=== PATIENT | male | born 1940 | race Caucasian/White ===

== ENCOUNTER 2018-12-26 09:50 | Observation (INO) ==
[2018-12-26] MEDS ORDERED: IOPAMIDOL 100 ML BOTTLE IV ONE (09:51)
--- NOTE | 2018-12-26 10:18 | Emergency Department Note ---
Abdominal Pain HPI - General Chief Complaint: Abdominal Pain Stated Complaint: abdominal pain Time Seen by Provider: 12/26/18 10:01 Source: patient Mode of arrival: ambulatory Limitations: no limitations - History of Present Illness HPI Narrative: 78-year-old male patient referred to emergency department via his GI specialist for suspected bowel obstruction. Patient has a long-standing history of Crohn's disease that is resulted in bowel obstruction this past September. Today, he woke up with exquisite abdominal pain and nausea/vomiting. He contacted his GI specialist (Mrs. Osuna) who referred him to the emergency department for evaluation. Upon arrival he is feeling "okay". He denies systemic fever, sweats, chills. He denies sinus congestion, runny nose, cough. He denies any shortness of breath. He denies any retrosternal chest pain or palpitations. He denies overt abdominal pain now. He denies nausea, vomiting, or diarrhea. He admits to having a normal bowel movement earlier today. He denies hematochezia. He denies hematuria or dysuria. He denies focal weakness. Review his active problems shows the following: CHF, elevated PSA, UTI, Crohn's disease, stroke (2013), arthritis, prediabetes, obstructive sleep apnea, obesity , hypertension, hyperlipidemia, gout, fatigue, GERD, bilateral hip pain, and back pain. - Related Data Home Medications Medication Instructions Recorded Confirmed aspirin 81 mg tablet 81 mg PO QDAY 12/21/14 10/23/18 krill oil 500 mg capsule 500 mg PO QDAY cap 12/21/14 10/23/18 multivitamin 1 tab PO QDAY 12/21/14 10/23/18 budesonide 3 mg 6 mg PO QAM 07/29/18 10/23/18 capsule,delayed,extended release Metoprolol Succinate [Toprol Xl] 25 mg PO DAILY 10/11/18 10/23/18 prednisone 20 mg tablet PO #56 tab 10/23/18 10/23/18 Previous Rx's Medication Instructions Recorded Replacement Bi-Pap Machine and #1 each 12/17/16 Supplies tamsulosin 0.4 mg capsule 0.4 mg PO QDAY #90 cap 12/16/17 omeprazole 40 mg capsule,delayed 40 mg PO QDAY #90 cap 03/03/18 release losartan 100 1 tab PO QDAY #90 tab 06/30/18 mg-hydrochlorothiazide 25 mg tablet terazosin 5 mg capsule 5 mg PO QDAY #90 cap 11/10/18 Allergies Allergy/AdvReac Type Severity Reaction Status Date / Time Penicillins [PENICILLINS] Allergy Severe Anaphylaxis Verified 10/23/18 09:13 Review of Systems All systems ED: reviewed and negative except as stated. Abdominal Pain PMH - Past Medical History Medical history: Reports: CHF, DM, GERD, other - Social History Smoking status: Former smoker Alcohol use: Reports: None Drug use: Reports: none Physical Exam Limitations: no limitations General appearance: alert, in no apparent distress Head: atraumatic, normocephalic Eye: Present: normal appearance, PERRL, EOMI. Absent: scleral icterus, conjunctival injection ENT: Present: normal oropharynx, mucous membranes moist Neck: Present: trachea midline. Absent: lymphadenopathy, thyromegaly Chest: Present: symmetric chest wall rise Respiratory: Present: normal lung sounds bilaterally. Absent: respiratory distress, wheezes, stridor, accessory muscle use, prolonged expiratory phase Cardiovascular: Present: irregular rhythm. Absent: systolic murmur, diastolic murmur Abdominal: Present: soft. Absent: distention, tenderness, guarding, rebound, r igidity, organomegaly, mass Extremities: Absent: pedal edema, pretibial edema, calf tenderness Back: Absent: CVA tenderness (R), CVA tenderness (L), spinous process tenderness Neurological: Present: alert, oriented X3 Psychiatric: Present: normal affect, normal mood Course Course Narrative: Patient was brought into the emergency department and a history of physical exam was performed. Saline lock was established and laboratory studies were drawn. CT scan of his abdomen and pelvis with contrast was ordered and reviewed. A review of his laboratory studies show the following: CBC RBC 4.42, hemoglobin 13.4, hematocrit 40.3. CMP elevated glucose 136, total bilirubin 1.4, all others are normal limits. Lipase of less than 7. CT of the abdomen and pelvis showed findings this is with partial mechanical small bowel obstruction. Radiologist mentions mild small bowel distention and relative collapse of the colon. He also mentions findings consistent with a history of Crohn's disease. Mild stricture of the distal ileum focal narrowing of the terminal ileum at the ileocecal valve but no closed loop obstruction. With all this in mind, I contacted our general surgeon Quirino is Dr. Florence) about possible admission. At this time Dr. Florence does recommend the patient be admitted to observation overnight. He recommended some IV fluids, sips of clear liquids, and a small bowel follow-through study to be done today. All these orders are going to be placed prior to the patient being admitted. Upon reevaluation patient continues to remain stable and is comfortable and return. We discussed at length the need for him to be admitted to observation. He verbalized understanding. At this time patient is going be admitted to the hospital as mentioned. All further treatment decisions and modalities will be carried out by the general surgeon. Vital Signs Temperature 97.2 F 12/26/18 09:51 Pulse Rate 106 H 12/26/18 09:51 Respiratory Rate 16 12/26/18 09:51 Blood Pressure 144/86 12/26/18 09:51 Pulse Oximetry (%) 96 12/26/18 09:51 Temperature 97.2 F 12/26/18 09:51 Pulse Rate 106 H 12/26/18 09:51 Respiratory Rate 16 12/26/18 09:51 Blood Pressure 144/86 12/26/18 09:51 Pulse Oximetry (%) 96 12/26/18 09:51 Abdominal Pain - Lab Data Lab results reviewed: Yes I reviewed the patient's lab results. Result diagrams: 12/26/18 10:22 12/26/18 10:22 Lab Results 12/26/18 12/26/18 Range/Units 10:22 10:22 WBC 6.0 (4.5-11.0) K/mcL RBC 4.42 L (4.50-5.90) M/mcL Hgb 13.4 L (13.5-16.5) g/dL Hct 40.3 L (41.0-55.0) % POC Hct 40.0 L (41.0-55.0) % MCV 91.1 (80.0-100.0) fL MCH 30.3 (26.0-34.0) pg MCHC 33.3 (31.0-36.0) g/dL RDW 17.1 H (11.5-14.5) % Plt Count 262 (140-440) K/mcL MPV 5.7 L (7.4-10.4) fL Gran % 83.3 H (38.0-78.0) % Lymph % (Auto) 5.6 L (15.5-49.0) % [place] % (Auto) 10.5 (1.0-12.0) % Eos % (Auto) 0.4 (0.0-7.0) % Baso % (Auto) 0.2 (0.0-2.0) % Gran # 5.0 (1.8-8.0) K/mcL Lymph # (Auto) 0.3 L (1.5-4.8) K/mcL [place] # (Auto) 0.6 (0.1-0.9) K/mcL Eos # (Auto) 0 (0.0-0.7) K/mcL Baso # (Auto) 0 (0.0-0.3) K/mcL POC Sodium 137 (133-145) mmol/L Sodium 138 (133-145) mmol/L POC Potassium 3.7 (3.3-5.1) mmol/L Potassium 3.7 (3.3-5.1) mmol/L POC Chloride 101 (96-108) mmol/L Chloride 102 (96-108) mmol/L Carbon Dioxide 25 (22-30) mmol/L POC Total CO2 25 (22-30) mmol/L Anion Gap 11.0 (8-16) POC BUN 10 (8-23) mg/dl BUN 11 (8-23) mg/dl Creatinine 1.0 (0.7-1.2) mg/dl POC Creatinine 1.0 (0.7-1.2) mg/dl GFR Calculation 73 Glucose 136 H (70-105) mg/dL POC Glucose 132 H (70-105) mg/dL Calcium 9.4 (8.6-10.4) mg/dl POC WB Ioniz Calcium 1.19 (1.16-1.32) mmol/L Total Bilirubin 1.4 H (0.0-1.0) mg/dL AST 14 (0-37) U/l ALT 14 (0-40) U/l Alkaline Phosphatase 58 (39-117) U/L Total Protein 6.5 (5.9-8.4) gm/dL Albumin 3.7 (3.2-5.2) gm/dL Globulin 2.8 (2.2-3.7) gm/dL Albumin/Globulin Ratio 1.3 (1.0-2.3) Lipase < 7 L (7-60) U/L - Radiology Data Radiology results reviewed: Yes I reviewed the patient's radiology results. Ordering Physician: Vladimir Pandey PA-C Date of Service: 12/26/18 Procedure(s): CT abdomen pelvis w con Accession Number(s): [id number] CLINICAL INFORMATION: History of Crohn's disease. Abdominal pain. COMPARISON: Previous CT scan dated 10/14/2018 TECHNIQUE: Axial images were obtained through the abdomen and pelvis. Sagittally and coronally reformatted images. 80 mL Isovue 370 injected intravenously. Oral contrast material was not administered FINDINGS: Patient has a history of Crohn's disease. Small bowel is mildly distended and largely fluid-filled. The ileum measures approximately 3.5 cm in cross-sectional diameter. There is stratification with submucosal fat. This is consistent with Crohn's disease. There is prominence of the vasa recta. This is also consistent with Crohn's disease. There is a focal area of mild narrowing in the distal ileum, approximately 12 cm proximal to the terminal ileum. This cyst with a mild stricture. There is also focal narrowing at the ileocecal valve in the terminal ileum. Facet with a focal stricture. Overall appearance is consistent with partial mechanical small bowel obstruction. There is no evidence for small bowel volvulus. No closed-loop. No evidence for ischemic small bowel. Lung bases:There is bilateral dependent atelectasis. There is mild bilateral lower lobe bronchiectasis. No parenchymal consolidation. There is cardiomegaly. No pericardial effusion. Liver:Negative. No significant intrahepatic abnormality. There is a 9 mm low density abnormality in the posterior segment of the right lobe of the liver, image 25. There is a second small low density abnormality adjacent to the gallbladder fossa these are small nonspecific abnormalities. There are not well-visualized on prior examination.. Liver contour is smooth. No evidence for cirrhosis. Gallbladder, billary:No calcified gallstones. No focal bladder wall thickening. No bile duct dilatation. Common bile duct measures 4 mm Spleen:Negative. No splenomegaly. Normal enhancement of the splenic portal veins Pancreas:Negative. No pancreatic mass. No evidence for pancreatitis Adrenal glands:Negative Kidneys, ureters, bladder:Negative. No hydronephrosis. No solid or cystic renal mass. There is no hydroureter. No bladder calculi Gastrointestinal:Colon is not distended and is moderately collapsed. There are colonic diverticula the proximal sigmoid colon and distal descending colon. No diverticulitis. No detectable colonic mass. No evidence for appendicitis. Vascular:There is calcification of the abdominal aorta. No abdominal aortic aneurysm. Celiac trunk and superior mesenteric artery are normal. Inferior mesenteric artery is opacified Lymphatic:No retroperitoneal adenopathy. There is no mesenteric adenopathy Mesentery, peritoneum:There is mild free intraperitoneal fluid. There is no intraperitoneal abscess. No pneumoperitoneum Reproductive:There is streak artifact from prosthetic hips. Prostate is not well evaluated Musculoskeletal:Severe multilevel degenerative disc disease. No lumbar compression fractures. Sacrum is negative. Patient has undergone previous bilateral total hip arthroplasties IMPRESSION: 1. Findings consistent with partial mechanical small bowel obstruction. There is mild small bowel distention and relative collapse of the colon 2. Findings consistent with Crohn's disease including small bowel stratification and prominence of vasa recta 3. Mild stricture of the distal ileum. Focal narrowing of the terminal ileum at the ileocecal valve. No closed loop obstruction. The exam was performed using radiation dose optimization techniques including, but not limited to, automated exposure control, adjustment of the mA and/or kV according to patient size and use of iterative reconstruction technique. Interpreted and Authenticated by: Live Ulloa 12/26/18 Disposition Pt seen by [employer]/PA only: Yes Clinical Impression: Small bowel obstruction Crohn's disease Qualifiers: Gastrointestinal tract location: small intestine Digestive disease complication type: with intestinal obstruction Qualified Code(s): K50.012 - Crohn's disease of small intestine with intestinal obstruction Disposition: Xfer As Outpt/Obs ([facility]) Condition: Good Instructions: Bowel Obstruction (ED) Additional Instructions: Patient is being admitted to observation under the care of the general surgeon (Dr. Florence). All further treatment decisions and modalities be carried out by Dr. Florence. Referrals: Evan Oleary PA-C [Primary Care Provider] - Time of Disposition: 12:10
[2018-12-26 10:33] LABS: POC Blood Urea Nitrogen 10 mg/dl (8-23); POC CO2 25 mmol/L (22-30); POC Calcium, Ionized 1.19 mmol/L (1.16-1.32); POC Chloride 101 mmol/L (96-108); POC Glucose, Random 132 mg/dL (70-105); POC Potassium 3.7 mmol/L (3.3-5.1); POC Sodium 137 mmol/L (133-145)
[2018-12-26 11:09] LABS: Basophils # (Auto) 0 K/mcL (0.0-0.3); Basophils % (Auto) 0.2 % (0.0-2.0); Eosinophils # (Auto) 0 K/mcL (0.0-0.7); Eosinophils % (Auto) 0.4 % (0.0-7.0); Granulocytes % (Auto) 83.3 % (38.0-78.0); Hematocrit 40.3 % (41.0-55.0); Hemoglobin 13.4 g/dL (13.5-16.5); Lymphocytes # (Auto) 0.3 K/mcL (1.5-4.8); Lymphocytes % (Auto) 5.6 % (15.5-49.0); Mean Cell Volume 91.1 fL (80.0-100.0); Mean Corpuscular HGB Conc 33.3 g/dL (31.0-36.0); Mean Platelet Volume 5.7 fL (7.4-10.4); Monocytes # (Auto) 0.6 K/mcL (0.1-0.9); Monocytes % (Auto) 10.5 % (1.0-12.0); Platelet Count 262 K/mcL (140-440); RBC 4.42 M/mcL (4.50-5.90); Red Cell Distribution Width 17.1 % (11.5-14.5)
--- NOTE | 2018-12-26 11:16 | Cat Scan Report ---
CLINICAL INFORMATION: History of Crohn's disease. Abdominal pain. COMPARISON: Previous CT scan dated 10/14/2018 TECHNIQUE: Axial images were obtained through the abdomen and pelvis. Sagittally and coronally reformatted images. 80 mL Isovue 370 injected intravenously. Oral contrast material was not administered FINDINGS: Patient has a history of Crohn's disease. Small bowel is mildly distended and largely fluid-filled. The ileum measures approximately 3.5 cm in cross-sectional diameter. There is stratification with submucosal fat. This is consistent with Crohn's disease. There is prominence of the vasa recta. This is also consistent with Crohn's disease. There is a focal area of mild narrowing in the distal ileum, approximately 12 cm proximal to the terminal ileum. This cyst with a mild stricture. There is also focal narrowing at the ileocecal valve in the terminal ileum. Facet with a focal stricture. Overall appearance is consistent with partial mechanical small bowel obstruction. There is no evidence for small bowel volvulus. No closed-loop. No evidence for ischemic small bowel. Lung bases:There is bilateral dependent atelectasis. There is mild bilateral lower lobe bronchiectasis. No parenchymal consolidation. There is cardiomegaly. No pericardial effusion. Liver:Negative. No significant intrahepatic abnormality. There is a 9 mm low density abnormality in the posterior segment of the right lobe of the liver, image 25. There is a second small low density abnormality adjacent to the gallbladder fossa these are small nonspecific abnormalities. There are not well-visualized on prior examination.. Liver contour is smooth. No evidence for cirrhosis. Gallbladder, billary:No calcified gallstones. No focal bladder wall thickening. No bile duct dilatation. Common bile duct measures 4 mm Spleen:Negative. No splenomegaly. Normal enhancement of the splenic portal veins Pancreas:Negative. No pancreatic mass. No evidence for pancreatitis Adrenal glands:Negative Kidneys, ureters, bladder:Negative. No hydronephrosis. No solid or cystic renal mass. There is no hydroureter. No bladder calculi Gastrointestinal:Colon is not distended and is moderately collapsed. There are colonic diverticula the proximal sigmoid colon and distal descending colon. No diverticulitis. No detectable colonic mass. No evidence for appendicitis. Vascular:There is calcification of the abdominal aorta. No abdominal aortic aneurysm. Celiac trunk and superior mesenteric artery are normal. Inferior mesenteric artery is opacified Lymphatic:No retroperitoneal adenopathy. There is no mesenteric adenopathy Mesentery, peritoneum:There is mild free intraperitoneal fluid. There is no intraperitoneal abscess. No pneumoperitoneum Reproductive:There is streak artifact from prosthetic hips. Prostate is not well evaluated Musculoskeletal:Severe multilevel degenerative disc disease. No lumbar compression fractures. Sacrum is negative. Patient has undergone previous bilateral total hip arthroplasties IMPRESSION: 1. Findings consistent with partial mechanical small bowel obstruction. There is mild small bowel distention and relative collapse of the colon 2. Findings consistent with Crohn's disease including small bowel stratification and prominence of vasa recta 3. Mild stricture of the distal ileum. Focal narrowing of the terminal ileum at the ileocecal valve. No closed loop obstruction. The exam was performed using radiation dose optimization techniques including, but not limited to, automated exposure control, adjustment of the mA and/or kV according to patient size and use of iterative reconstruction technique. Interpreted and Authenticated by: Live Ulloa 12/26/18
[2018-12-26 11:34] LABS: ALT/SGPT 14 U/l (0-40); AST/SGOT 14 U/l (0-37); Albumin 3.7 gm/dL (3.2-5.2); Albumin/Globulin Ratio 1.3 (1.0-2.3); Alkaline Phosphatase 58 U/L (39-117); Bilirubin,Total 1.4 mg/dL (0.0-1.0); Blood Urea Nitrogen 11 mg/dl (8-23); Calcium 9.4 mg/dl (8.6-10.4); Carbon Dioxide 25 mmol/L (22-30); Chloride 102 mmol/L (96-108); Globulin 2.8 gm/dL (2.2-3.7); Glomerular Filtration Rate 73; Glucose 136 mg/dL (70-105)
[2018-12-26] MEDS ORDERED: ONDANSETRON 4 MG/2 ML VIAL IV PRN (12:10)
[2018-12-26] MEDS ORDERED: ACETAMINOPHEN 325 MG TABLET PO PRN (12:10)
[2018-12-26] MEDS ORDERED: PROMETHAZINE 25 MG/ML VIAL IV PRN (12:27)
[2018-12-26] MEDS: 0.9 % SODIUM CHLORIDE 1,000 ML IV SCH (13:54)
--- NOTE | 2018-12-26 16:33 | General Surg History&Physical ---
History of Present Illness Patient information: Note initiated : 12/26/18 at 4:30 pm Service Date, if different from initiated Date: [] Patient: Gavin Andrade a 78 y/o M admitted on 12/26/18 for abdominal pain. Chief Complaint: [] HPI: Mr. Andrade is a 78 year old M admitted with partial intestinal obstruction. He has a long history of Crohn's disease and has been more symptomatic over the past 5 years. He had his last attack in September of this year. He was noted to have exacerbation and was treated with IV steroids and transferred back home. He has been on tapering systemic steroids since that time. He took his last prednisone on yesterday. The patient had ingestion of some knots and candy with knots. Yesterday. He developed crampy abdominal pain last evening and had nausea with vomiting 2 this morning. He was seen in the emergency room and was noted to have dilated loops of small bowel and CT scan suggesting distal ileal stricture. He however does have gas in his colon, especially his right colon, transverse colon, suggesting that this is a partial obstruction and not complete. He has been started on small bowel follow-through and is to Brynn out from ingesting contrast. The patient had colonoscopy in January 2018 which showed a tight ileal stricture and chronic active colitis. When seen [place] in [place] 2018. He was told to consider segmental resection of his terminal ileum because of the high-grade stricture. Review of Systems - Constitutional frequent falls, weakness - EENT Nose, mouth and throat: abnormal hearing, disequilibrium, neck pain - Cardiovascular irregular heart rhythm, lightheadedness - Respiratory chest congestion - Gastrointestinal abdominal pain, belching, bloating, cramping, nausea, vomiting - Genitourinary post void dribbling, urinary frequency, urinary hesitancy, urinary urgency - Musculoskeletal back pain - Neurological disequilibrium, frequent falls - Psychiatric no anxiety, no depression - Hematologic/Lymphatic no easy bleeding, no easy bruising, no lymphadenopathy - Allergic/Immunologic no tongue swelling, no throat swelling, no uticaria, no wheezing, no lip swelling Past History Past medical history: Chronic stable congestive heart failure. Remote left CVA. BPH with lower urinary tract symptoms. Hypertension. Chronic atrial fibrillation. Obstructive sleep apnea with use of BiPAP. Estrogen receptor reflux disease. History of stroke 2013 Past surgical history: Bilateral total hip arthroplasty 2009 History of back surgery 2. Left carotid endarterectomy Past family history: Hypertension. Coronary artery disease. Stroke. Lymphoma Past social history: Prior history of alcohol use but none recently. Prior history of tobacco use Denies drug use Medications and Allergies Home Medications Medication Instructions Recorded Confirmed Type aspirin 81 mg tablet 81 mg PO QDAY 12/21/14 12/26/18 History krill oil 500 mg capsule 500 mg PO QDAY cap 12/21/14 10/23/18 History multivitamin 1 tab PO QDAY 12/21/14 10/23/18 History Replacement Bi-Pap Machine and #1 each 12/17/16 10/23/18 Rx Supplies tamsulosin 0.4 mg capsule 0.4 mg PO QDAY #90 cap 12/16/17 10/23/18 Rx omeprazole 40 mg capsule,delayed 40 mg PO QDAY #90 cap 03/03/18 10/23/18 Rx release losartan 100 1 tab PO QDAY #90 tab 06/30/18 10/23/18 Rx mg-hydrochlorothiazide 25 mg tablet budesonide 3 mg 6 mg PO QAM 07/29/18 12/26/18 History capsule,delayed,extended release Metoprolol Succinate [Toprol Xl] 25 mg PO DAILY 10/11/18 10/23/18 History prednisone 20 mg tablet PO #56 tab 10/23/18 10/23/18 History terazosin 5 mg capsule 5 mg PO QDAY #90 cap 11/10/18 Rx Allergies Allergy/AdvReac Type Severity Reaction Status Date / Time Penicillins [PENICILLINS] Allergy Severe Anaphylaxis Verified 12/26/18 13:55 Exam Temp Pulse Resp BP Pulse Ox 98.8 F 110 H 18 143/74 95 12/26/18 13:21 12/26/18 13:21 12/26/18 13:21 12/26/18 13:21 12/26/18 13:21 - General physical appearance well developed, well nourished, no distress - Eyes PERRL, normal ocular movement - ENT normal pinna, normal nares, normal mucosa, no hearing loss, no congestion - Head Head exam IM: Present: atraumatic, normocephalic - Neck no masses, no bruits, trachea midline, no lymphadenopathy, no venous distension - Cardiovascular Cardiovascular exam IM: Present: irregular rhythm, +S1, +S2. Absent: bradycardia, tachycardia - Respiratory normal expansion, normal respiratory effort, clear to auscultation - Abdomen Abdomen: Present: soft, non tender, bowel sounds Hernia: Present: none, umbilical (small reducible umbilical hernia) - Genitourinary Present: normal penis with no external lesions - Integumentary Present: no rash, no growths, no abnormal pigmentation - Neurologic Present: normal coordination, normal sensation - Musculoskeletal Present: normal gait, normal posture - Psychiatric Present: oriented to time, oriented to person, oriented to place, speech is normal, memory intact Assessment and Plan (1) Small bowel obstruction, partial Proceed with small bowel follow through Operative treatment if needed Status: Acute (2) Congestive heart failure (CHF) Clinically stable at this time will start diuretics and antihypertensives Status: Chronic Qualifiers: Heart failure type: diastolic Heart failure chronicity: chronic Qualified Code(s): I50.32 - Chronic diastolic (congestive) heart failure (3) Crohn's disease Solu-Medrol 60 mg IV every 12 hours Status: Chronic Qualifiers: Gastrointestinal tract location: small intestine Digestive disease complication type: with intestinal obstruction Qualified Code(s): K50.012 - Crohn's disease of small intestine with intestinal obstruction (4) ALAN (obstructive sleep apnea) Patient will get supplemental oxygen as needed Status: Chronic (5) Hypertension, essential Status: Chronic
[2018-12-26] MEDS: METOCLOPRAMIDE 10 MG/2 ML VIAL IV SCH (19:07)
[2018-12-27] MEDS: HYDROmorphone 2 MG/ML VIAL IV PRN ×2 (00:05→07:30)
[2018-12-27] MEDS: METOCLOPRAMIDE 10 MG/2 ML VIAL IV SCH ×4 (00:06→18:23)
[2018-12-27] MEDS: methylPREDNISolone SOD SUCC 125 MG/2 ML VIAL IV SCH ×3 (00:10→21:59)
[2018-12-27] MEDS: 0.9 % SODIUM CHLORIDE 1,000 ML IV SCH ×3 (00:41→15:06)
--- NOTE | 2018-12-27 09:46 | XRay Report ---
CLINICAL INFORMATION: Crohn's disease. CT scan consistent with partial mechanical small bowel obstruction TECHNIQUE: Small bowel study was performed with water-soluble contrast material. Images were obtained at 30 minutes, 1 hour 30 minutes, 2 hours 30 minutes, 15 hours 30 minutes. COMPARISON: CT scan dated 12/26/2018 FINDINGS: There is delayed passage of contrast material through the small bowel. There is small bowel dilatation. Contrast material is not in the colon at 2 hours 30 minutes. There is contrast material throughout the colon at 15 hours 30 minutes. Appearance is consistent with partial mechanical small bowel obstruction. CT scan demonstrates small bowel narrowing in the distal and terminal ileum consistent with stricture. IMPRESSION: 1. Findings consistent with partial mechanical small bowel obstruction 2. Contrast material in the colon by 15 hours, 30 minutes postingestion Interpreted and Authenticated by: Live Ulloa 12/27/18
--- NOTE | 2018-12-27 14:54 | General Surgery Progress Note ---
Subjective Patient reports: feels better, pain is less, tolerating liquids well, flatus, bowel movement, afebrile Narrative: Note initiated : 12/27/18 at 2:52 pm Service Date, if different from initiated Date: [] Patient: Gavin Andrade 78 y/o M admitted on 12/26/18 for abdominal pain. Chief Complaint: [patient is significantly improved. He had transit of contrast through his small bowel to his colon. He had 6 large bowel movements during the night. Follow-up x-ray shows dilated loops of small bowel and colon, but no transition point and with most of contrast in distal colon. He denies pain and he does not have nausea. He has tolerated oral diet without difficulty] Objective Temp Pulse Resp BP Pulse Ox 97.8 F 99 H 16 145/92 96 12/27/18 12:00 12/27/18 12:00 12/27/18 12:00 12/27/18 12:00 12/27/18 12:00 - Additional Data Intake & Output - Last 24 hours: Intake & Output 12/25/18 12/26/18 12/27/18 12/28/18 05:59 05:59 05:59 04:59 Intake Total 1000 480 Output Total 300 50 Balance 700 430 Weight 223 lb 8 oz - General physical appearance well developed, well nourished, no distress - Eyes PERRL, normal ocular movement - ENT normal pinna, normal nares, normal mucosa, no hearing loss, no congestion - Neck no masses, no bruits, trachea midline, no lymphadenopathy, no venous distension - Respiratory normal expansion, normal respiratory effort, clear to auscultation - Cardiovascular Cardiovascular exam: Present: normal rate and rhythm, irregular rhythm, +S1, +S2. Absent: JVD, tachycardia - Abdomen non tender (no tenderness), bowel sounds (present), surgical scars (none), masses (none) - Integumentary no rash, no growths, no abnormal pigmentation - Neurologic normal coordination, normal sensation - Musculoskeletal normal gait, normal posture - Psychiatric oriented to time, oriented to person, oriented to place, speech is normal, memory intact - Labs 12/26/18 10:22 12/26/18 10:22 Assessment and Plan (1) Small bowel obstruction, partial Status: Acute Assessment and plan: Patient is significantly improved. MiraLAX 17 g in liquid every 2 hours 4. Two-view abdominal x-ray in the morning Current Visit: Yes (2) Congestive heart failure (CHF) Status: Chronic Assessment and plan: Will restart antihypertensives and diuretics Current Visit: No (3) Crohn's disease Status: Chronic Current Visit: Yes (4) ALAN (obstructive sleep apnea) Status: Chronic Current Visit: No (5) Hypertension, essential Status: Chronic Current Visit: No - Time Spent With Patient Total time spent is greater than 50% in coordination of care (as documented) at patient's floor/unit and/or counseling patient:
[2018-12-27] MEDS: POLYETHYLENE GLYCOL 3350 17 GM PACKET PO SCH ×4 (15:59→21:59)
[2018-12-27] MEDS: LOSARTAN 50 MG TABLET PO SCH (17:20)
[2018-12-27] MEDS: METOPROLOL SUCCINATE 25 MG TAB.XL.24H PO SCH (17:20)
[2018-12-27] MEDS: HYDROCHLOROTHIAZIDE 25 MG TABLET PO SCH (17:21)
[2018-12-27] MEDS: TERAZOSIN 5 MG CAPSULE PO SCH (17:21)
[2018-12-27] MEDS ORDERED: TAMSULOSIN 0.4 MG CAPSULE PO SCH (21:00)
[2018-12-28] MEDS: METOCLOPRAMIDE 10 MG/2 ML VIAL IV SCH ×2 (01:13→06:09)
[2018-12-28] MEDS ORDERED: METOPROLOL SUCCINATE 25 MG TAB.XL.24H PO SCH (09:00)
[2018-12-28] MEDS ORDERED: TERAZOSIN 5 MG CAPSULE PO SCH (09:00)
[2018-12-28] MEDS ORDERED: BUDESONIDE 3 MG CAP.XL.24H PO SCH (09:00)
[2018-12-28] MEDS ORDERED: LOSARTAN/HCTZ 100/25 TABLET PO SCH (09:00)
[2018-12-28] MEDS ORDERED: LOSARTAN 50 MG TABLET PO SCH (09:00)
[2018-12-28] MEDS ORDERED: HYDROCHLOROTHIAZIDE 25 MG TABLET PO SCH (09:00)
--- NOTE | 2018-12-28 09:20 | XRay Report ---
CLINICAL INFORMATION: Crohn's disease. History of partial mechanical small bowel obstruction TECHNIQUE: Supine and upright abdomen COMPARISON: Previous CT scan dated 12/26/2018. Previous small bowel study dated 12/26/2018 FINDINGS: Bowel gas pattern is unremarkable. There is gas throughout the colon. There is some small bowel gas with mild prominence of a segment of jejunum. Contrast material is no longer present. No evidence for high-grade or significant mechanical small bowel obstruction. There is no pneumoperitoneum. No biliary or portal venous gas. No pneumatosis. No focal abnormality IMPRESSION: 1. Unremarkable bowel gas pattern, improved since 12/26/2018 2. No evidence for significant mechanical small bowel obstruction Interpreted and Authenticated by: Live Ulloa 12/28/18
[2018-12-28] MEDS: METOPROLOL SUCCINATE 25 MG TAB.XL.24H PO SCH (09:26)
[2018-12-28] MEDS: LOSARTAN 50 MG TABLET PO SCH (09:26)
[2018-12-28] MEDS: HYDROCHLOROTHIAZIDE 25 MG TABLET PO SCH (09:26)
[2018-12-28] MEDS: TERAZOSIN 5 MG CAPSULE PO SCH (09:26)
[2018-12-28] MEDS: methylPREDNISolone SOD SUCC 125 MG/2 ML VIAL IV SCH (09:26)
--- NOTE | 2018-12-28 11:13 | Discharge Summary ---
Providers - Providers Patient information: Note initiated : 12/28/18 at 11:10 am Service Date, if different from initiated Date: [] Patient: Gavin Andrade 78 y/o M admitted on 12/26/18 for abdominal pain. Chief Complaint: [] Date of admission: 12/26/18 Discharge date: 12/28/18 Attending physician: Collin Florence Hospitalization Hospital Course: 78-year-old male who was admitted with partial bowel obstruction. He has a history of Crohn's ileitis and had a history of partial obstruction in September 2018 that cleared spontaneously. He has had colonoscopy with biopsy of terminal ileum, which confirms chronic ileitis. He presents with abdominal pain, nausea and vomiting. This occurred after he ate a large amount of nuts. CT shows dilated loops of distal small bowel with decompressed colon. The patient was treated expectantly and had a small bowel follow-through which showed transit through the strictured area. He had multiple bowel movements yesterday. He had 3 more bowel movements last evening. He has asymptomatic now and tolerating a regular diet. Patient is stable for discharge home. Discharge diagnosis: partial small bowel obstruction Secondary discharge diagnosis: Terminal ileitis Reason for admission: abdominal pain nausea and vomiting Procedures: None Pertinent studies/significant findings: Small bowel follow-through Complications: None Exam Temp Pulse Resp BP Pulse Ox 99 F 72 20 129/82 96 12/28/18 07:41 12/28/18 07:32 12/28/18 07:41 12/28/18 07:41 12/28/18 07:41 - General physical appearance well developed, well nourished, no distress - Eyes PERRL, normal ocular movement - ENT normal pinna, normal nares, normal mucosa, no hearing loss, no congestion - Head Head exam IM: Present: atraumatic, normocephalic - Neck no masses, no bruits, trachea midline, no lymphadenopathy, no venous distension - Cardiovascular Cardiovascular exam IM: Present: normal rate and rhythm - Respiratory normal expansion, normal respiratory effort, clear to percussion, clear to auscultation - Abdomen Abdomen: Present: soft, non tender, bowel sounds, distended (abeba distended but nontender; hyperactive bowel sounds) Hernia: Present: none - Genitourinary Present: normal penis with no external lesions - Integumentary Present: no rash, no growths, no abnormal pigmentation - Neurologic Present: normal coordination, normal sensation - Musculoskeletal Present: other (abnormal gait and posture due to right-sided weakness) - Psychiatric Present: oriented to time, oriented to person, oriented to place, speech is normal, memory intact Discharge Plan - Patient/Caregiver Discharge Instructions Activity: increase activity as tolerated Diet: Regular Diet (patient has to refrain from using nuts and popcorn) Additional Instructions: MiraLAX one capful in 8 ounces liquid once or twice daily as needed - Follow up Plan Follow up with: Evan Oleary PA-C [Primary Care Provider] - Disposition: Home, Self-Care Prognosis: Good Rehab Potential: Good I certify that the patient requires SNF services.: No Overall status at discharge: patient is back to baseline Pending Studies Resuscitation Status Do Not Resuscitate Diet Regular Diet Start Sat Dec 27 1137 Budesonide (Entecort) 9 mg PO QAM [facility] Last Admin: 12/28/18 09:44 Dose: Not Given Documented by: PALMER Hydrochlorothiazide (Oretic) 25 mg PO DAILY [facility] Last Admin: 12/28/18 09:26 Dose: 25 mg Documented by: Admin: 12/27/18 17:21 Dose: 25 mg Documented by: KENIA Hydromorphone HCl (Dilaudid) 1 mg IV Q2HP PRN PRN Reason: PAIN LEVEL > 6 Last Admin: 12/27/18 07:30 Dose: 1 mg Documented by: Admin: 12/27/18 00:05 Dose: 1 mg Documented by: PAIGE Losartan Potassium (Cozaar) 100 mg PO DAILY [facility] Last Admin: 12/28/18 09:26 Dose: 100 mg Documented by: Admin: 12/27/18 17:20 Dose: 100 mg Documented by: KENIA Methylprednisolone Sodium Succinate (Solu-Medrol) 62.5 mg IV Q12 [facility] Last Admin: 12/28/18 09:26 Dose: 62.5 mg Documented by: Admin: 12/27/18 21:59 Dose: 62.5 mg Documented by: Admin: 12/27/18 09:34 Dose: 62.5 mg Documented by: Admin: 12/27/18 00:10 Dose: 62.5 mg Documented by: PAIGE Metoclopramide HCl (Reglan) 10 mg IV Q6 [facility] Last Admin: 12/28/18 06:09 Dose: 10 mg Documented by: Admin: 12/28/18 01:13 PST Dose: Not Given Documented by: Admin: 12/27/18 18:23 Dose: 10 mg Documented by: Admin: 12/27/18 12:50 Dose: 10 mg Documented by: Admin: 12/27/18 06:07 Dose: 10 mg Documented by: Admin: 12/27/18 00:06 Dose: 10 mg Documented by: Admin: 12/26/18 19:07 Dose: 10 mg Documented by: PAIGE Metoprolol Succinate (Toprol Xl) 25 mg PO DAILY [facility] Last Admin: 12/28/18 09:26 Dose: 25 mg Documented by: Admin: 12/27/18 17:20 Dose: 25 mg Documented by: KENIA Tamsulosin HCl (Flomax) 0.4 mg PO HS [facility] Last Admin: 12/27/18 21:59 Dose: 0.4 mg Documented by: PAIGE Terazosin HCl (Hytrin) 5 mg PO QDAY [facility] Last Admin: 12/28/18 09:26 Dose: 5 mg Documented by: Admin: 12/27/18 17:21 Dose: 5 mg Documented by: KENIA Shift Summary 12/28/18 05:15 Shift Summary by Matthew Harris Pt has rested well tonight. He is up (I) in RM - to & from [place]. Pt has had 2x loose BM's this shift. He voids per urinal - urine is concentrated. Saline lock RT A/C - flushed & patent. He has denied pain or nausea tonight. VS - WNL on R.A.. He is A&Ox4, calm, pleasant, & cooperative. He should D/C to home later today. Initialized on 12/28/18 05:15 - END OF NOTE
== END 2018-12-28 12:15 | disposition home or self-care (01) ==
LOC: MEDSUR 09:50 → ED 09:50 → MEDSUR 13:21
PROVIDERS: ADMIT Internal Medicine; ATTEND Family Medicine Adult Medicine

== ENCOUNTER 2019-01-14 10:27 | Inpatient (IN) ==
[2019-01-14] MEDS ORDERED: IOPAMIDOL 100 ML BOTTLE IV ONE (10:28)
[2019-01-14] MEDS ORDERED: ONDANSETRON 4 MG/2 ML VIAL IV ONE (11:04)
[2019-01-14] MEDS ORDERED: LACTATED RINGERS 1,000 ML IV ONE (11:04)
[2019-01-14 11:25] LABS: POC Blood Urea Nitrogen 15 mg/dl (8-23); POC CO2 28 mmol/L (22-30); POC Calcium, Ionized 1.15 mmol/L (1.16-1.32); POC Chloride 102 mmol/L (96-108); POC Creatinine 0.9 mg/dl (0.7-1.2); POC Glucose, Random 155 mg/dL (70-105); POC Potassium 3.8 mmol/L (3.3-5.1); POC Sodium 140 mmol/L (133-145)
[2019-01-14 11:47] LABS: Basophils # (Auto) 0 K/mcL (0.0-0.3); Basophils % (Auto) 0.3 % (0.0-2.0); Eosinophils # (Auto) 0 K/mcL (0.0-0.7); Eosinophils % (Auto) 0.7 % (0.0-7.0); Granulocytes % (Auto) 82.7 % (38.0-78.0); Hematocrit 44.8 % (41.0-55.0); Hemoglobin 15.2 g/dL (13.5-16.5); Lymphocytes # (Auto) 0.5 K/mcL (1.5-4.8); Lymphocytes % (Auto) 6.9 % (15.5-49.0); Mean Cell Volume 89.8 fL (80.0-100.0); Mean Platelet Volume 6.8 fL (7.4-10.4); Monocytes # (Auto) 0.7 K/mcL (0.1-0.9); Monocytes % (Auto) 9.4 % (1.0-12.0); Platelet Count 237 K/mcL (140-440); RBC 4.99 M/mcL (4.50-5.90); Red Cell Distribution Width 15.2 % (11.5-14.5); WBC 7.1 K/mcL (4.5-11.0)
--- NOTE | 2019-01-14 12:01 | Emergency Department Note ---
Nausea/Vomiting/Diarrhea HPI - General Chief complaint: Nausea/Vomiting/Diarrhea Stated complaint: Abd pain and vomiting Time Seen by Provider: 01/14/19 11:56 Source: patient, family Mode of arrival: ambulatory Limitations: no limitations - History of Present Illness HPI Narrative: 78-year old patient presenting to the [facility] emergency department with a chief complaint of abdominal pain. Patient reports the pain is acute. Patient has had symptoms for a couple of days. Patient noting pain is cramping. Patient reporting pain is severe. Patient with exacerbating factors of vomiting and history of multiple small bowel obstructions. Patient with ameliorating factors of vomiting. Patient with associated symptoms of feculent material. Patient without associated symptoms of diarrhea, fever, blood in stool, hematemesis, constipation, dysuria, frequency, hematuria, weight loss, cough, shortness of breath, orthopnea, exertional component. Patient with recent trip to [place] for this issue. Patient family states no significant progress made on the case during that visit. Patient then subsequently seen by Dr. Florence here at [facility] and they felt that there issues were addressed and they were hoping for additional care at this facility and not to be transferred. - Related Data Home Medications Medication Instructions Recorded Confirmed aspirin 81 mg tablet 81 mg PO QDAY 12/21/14 12/26/18 krill oil 500 mg capsule 500 mg PO QNOON cap 12/21/14 12/27/18 multivitamin 1 tab PO QNOON 12/21/14 12/27/18 budesonide 3 mg 9 mg PO QAM 07/29/18 12/27/18 capsule,delayed,extended release Metoprolol Succinate [Toprol Xl] 25 mg PO DAILY 10/11/18 12/27/18 Naproxen Sod/Diphenhydram HCl 2 tab PO HS 12/27/18 12/27/18 [Aleve Pm Caplet] Tamsulosin [Flomax] 0.4 mg PO HS 12/27/18 12/27/18 Previous Rx's Medication Instructions Recorded omeprazole 40 mg capsule,delayed 40 mg PO QDAY #90 cap 03/03/18 release terazosin 5 mg capsule 5 mg PO QDAY #90 cap 11/10/18 losartan 100 1 tab PO QDAY #90 tab 01/07/19 mg-hydrochlorothiazide 25 mg tablet Allergies Allergy/AdvReac Type Severity Reaction Status Date / Time Penicillins [PENICILLINS] Allergy Severe Anaphylaxis Verified 01/14/19 10:27 Review of Systems All systems ED: reviewed and negative except as stated. Past Medical History - Past Medical History PMFSH Narrative: All Active Problems (Last Reviewed 07/29/18 @ 09:02 by Live Walker DO) Small bowel obstruction (Acute) Small bowel obstruction, partial (Acute) Hay fever (Chronic) Pedal edema (Acute) Congestive heart failure (CHF) (Chronic) Elevated Prostate Specific Antigen (PSA) (Acute) Urinary tract infection (Acute) Crohn's disease (Chronic) Stroke (Chronic) Arthritis (Chronic) Prediabetes (Chronic) ALAN (obstructive sleep apnea) (Chronic) Obesity (Chronic) Hypertension, essential (Chronic) Hyperlipidemia (Chronic) Hypercholesterolemia (Chronic) Gout (Chronic) Fatigue (Chronic) Esophageal reflux (Chronic) Erectile dysfunction (Chronic) Bilateral hip pain (Chronic) Back pain (Chronic) Medical history: Reports: CHF, DM, GERD, other Surgical history ED: Reports: non-contributory - Social History smoking status: Former smoker Alcohol use: Reports: None Drug use: Reports: none Physical Exam Vital signs are assessed for evidence of hemodynamic instability. General: Alert, interactive, appropriate Head: Atraumatic, normocephalic Eyes: Extraocular movements intact, PERRLA Neck: Trachea midline, full range of motion Chest: Symmetrical chest wall rise, clear to auscultation bilateral without wheezes rales crackles or rubs Cardiovascular: Patient with excellent perfusion to the extremities, regular rate and rhythm without M/R/G Abdomen: Patient primarily tenderness to the abdomen diffusely, patient without exam suggestive of peritonitis, distended and tympanitic, bowel sounds decreased, no masses, no hepatosplenomegaly, no rebound, and no guarding Extremities: Full range of motion joints, warm well perfused Neuro: Alert, oriented x3, cranial nerves II through XII grossly intact, normal gait Psychiatric: Normal affect normal mood Limitations: no limitations Course Vital Signs Temperature 97.4 F 01/14/19 10:27 Pulse Rate 108 H 01/14/19 10:27 Respiratory Rate 18 01/14/19 10:27 Blood Pressure 133/82 01/14/19 10:27 Pulse Oximetry (%) 97 01/14/19 10:27 Temperature 97.4 F 01/14/19 10:27 Pulse Rate 108 H 01/14/19 10:27 Respiratory Rate 18 01/14/19 10:27 Blood Pressure 133/82 01/14/19 10:27 Pulse Oximetry (%) 97 01/14/19 10:27 Nausea/Vomiting/Diarrhea - MDM Narrative Medical decision making narrative: Initial work-up for this issue included consideration for the following laboratory evaluation CBC, CMP, as well as imaging. Differential diagnosis considered included: Obstruction, perforation, mesenteric ischemia, Crohn's disease, ulcerative colitis, viral gastroenteritis, spontaneous bacterial peritonitis, ketoacidosis, adrenal insufficiency, foodborne illness, IBS, constipation, AAA, abdominal compartment syndrome, abdominal migraine, chronic abdominal pain, colonic pseudoobstruction, zoster, hypercalcemia, hypothyroidism, pulmonary causes. Pt does have small bowel obstruction partial at the level of the distal ileum. Discussed the case with Dr. Florence. We will admit to Dr. Florence. Holding orders written by myself. - Lab Data Result diagrams: 01/14/19 11:16 01/14/19 11:16 Lab Results 01/14/19 01/14/19 Range/Units 11:16 11:16 WBC 7.1 (4.5-11.0) K/mcL RBC 4.99 (4.50-5.90) M/mcL Hgb 15.2 (13.5-16.5) g/dL Hct 44.8 (41.0-55.0) % POC Hct 46.0 (41.0-55.0) % MCV 89.8 (80.0-100.0) fL MCH 30.5 (26.0-34.0) pg MCHC 34.0 (31.0-36.0) g/dL RDW 15.2 H (11.5-14.5) % Plt Count 237 (140-440) K/mcL MPV 6.8 L (7.4-10.4) fL Gran % 82.7 H (38.0-78.0) % Lymph % (Auto) 6.9 L (15.5-49.0) % [place] % (Auto) 9.4 (1.0-12.0) % Eos % (Auto) 0.7 (0.0-7.0) % Baso % (Auto) 0.3 (0.0-2.0) % Gran # 5.9 (1.8-8.0) K/mcL Lymph # (Auto) 0.5 L (1.5-4.8) K/mcL [place] # (Auto) 0.7 (0.1-0.9) K/mcL Eos # (Auto) 0 (0.0-0.7) K/mcL Baso # (Auto) 0 (0.0-0.3) K/mcL POC Sodium 140 (133-145) mmol/L POC Potassium 3.8 (3.3-5.1) mmol/L POC Chloride 102 (96-108) mmol/L POC Total CO2 28 (22-30) mmol/L POC BUN 15 (8-23) mg/dl POC Creatinine 0.9 (0.7-1.2) mg/dl POC Glucose 155 H (70-105) mg/dL POC WB Ioniz Calcium 1.15 L (1.16-1.32) mmol/L Disposition Pt seen by [facility]IP[facility] PHYSICIAN/PA only: No Clinical Impression: Small bowel obstruction, partial Disposition: Xfer As Outpt/Obs ([facility]) Condition: Fair Instructions: Bowel Obstruction (ED) Referrals: Evan Oleary PA-C [Primary Care Provider] -
[2019-01-14 12:05] LABS: ALT/SGPT 17 U/l (0-40); AST/SGOT 19 U/l (0-37); Albumin 4.2 gm/dL (3.2-5.2); Albumin/Globulin Ratio 1.4 (1.0-2.3); Alkaline Phosphatase 74 U/L (39-117); Bilirubin,Total 2.6 mg/dL (0.0-1.0); Blood Urea Nitrogen 14 mg/dl (8-23); Calcium 9.6 mg/dl (8.6-10.4); Carbon Dioxide 25 mmol/L (22-30); Chloride 100 mmol/L (96-108); Globulin 3.1 gm/dL (2.2-3.7); Glomerular Filtration Rate 73; Glucose 161 mg/dL (70-105)
--- NOTE | 2019-01-14 12:13 | Cat Scan Report ---
History: Crohn's disease with recurrent abdominal pain and vomiting TECHNIQUE: The patient was imaged following intravenous but no oral contrast from the diaphragm to the symphysis pubis. Sagittal and coronal reformats were created. The radiation exposure was limited using dose reduction technology. FINDINGS: There is minor scarring or dependent atelectasis in both lung bases. The liver is normal in size. Beneath the capsule high and posteriorly in the right lobe there is a 7 to 8 mm low-attenuation structure. This is probably a cyst. There is another one in the left lobe near the diaphragm. These have remained stable from the prior study. The gallbladder is normal and the bile ducts are nondilated. The spleen is normal in size and homogeneous. There is no evidence of a mass or inflammation in the pancreas. The adrenals are normal. There is mild to moderate loss of renal parenchyma in both kidneys. No kidney stone mass or hydronephrosis are present in either kidney. Scattered plaques are present along the wall of normal caliber abdominal aorta. There is no evidence of stenosis or thrombosis of the celiac, superior mesenteric or inferior mesenteric arteries. The stomach contains a normal amount of fluid is not distended. The duodenum and proximal jejunum are normal. There is mild dilatation of the distal jejunum and throughout the ileum. In the distal 20 to 36 cm of the ileum the wall of a small intestine is abnormally thickened and inflamed. There is partial obstruction at the ileocecal valve due to inflammation causing concentric narrowing of the wall. No discrete mass is seen. There is no abscess or evidence of perforation. Patient does have small amount of ascites in the midabdomen and adjacent to the liver. The colon is largely decompressed. There are multiple noninflamed diverticula in the descending and sigmoid colon. Patient has bilateral middle hip prosthesis causing significant beam hardening artifact in lower pelvis. No gross abnormalities seen in the bladder. The prostate may be enlarged. There are advanced degenerative changes throughout the lumbar spine and lower thoracic spine. No lytic or blastic lesion are detected. Comparison with the prior CT on 12/26/18 shows the inflammation the wall of the ileum has become worse and the small bowel obstruction has also become worse. IMPRESSION: Active Crohn's disease causing partial small bowel obstruction due to inflammation and/or fibrosis at the ileocecal valve Dr. Jones was called with the results Interpreted and Authenticated by: Matt Shea 01/14/19
[2019-01-14] MEDS ORDERED: ONDANSETRON 4 MG/2 ML VIAL IV PRN (16:46)
[2019-01-14] MEDS ORDERED: HYDROmorphone 2 MG/ML VIAL IV PRN ×2 (16:46→16:55)
[2019-01-14] MEDS: 0.9 % SODIUM CHLORIDE 1,000 ML IV SCH (17:23)
[2019-01-14] MEDS: LEVOFLOXACIN 750 MG/150 ML BAG IV SCH ×3 (17:30→17:57)
[2019-01-14 17:32] LABS: Appearance,Urine CLEAR; Bacteria,Urine 0 /hpf (0); Bilirubin,Urine NEG (NEG); Color,Urine YELLOW; Glucose,Urine (UA) NEGATIVE (NEG); Ketones,Urine NEG (NEG); Leukocyte Esterase,Urine NEG /uL (NEG); Mucus,Urine FEW /hpf (0); Nitrate,Urine POS (NEG); Protein,Urine 30 mg/dL (NEG); Urine Blood NEG mg/dL (<0.03); Urine RBC 10 /hpf (0-1); Urine Squamous Epithelial Cell 0 /hpf (0-4); Urine WBC 0 /hpf (0-4)
--- NOTE | 2019-01-14 17:32 | XRay Report ---
HISTORY: Preop FINDINGS: Lungs are clear and well expanded. The heart is mildly enlarged. There is no congestive heart failure or pleural effusion. Comparison with the prior chest CT on 10/12/18 shows the heart size is stable. Previously seen pleural effusions have resolved. The trachea is being deviated to the right at the level of the manubrium. 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 IMPRESSION: Cardiomegaly and no acute abnormality Interpreted and Authenticated by: Matt Shea 01/14/19
--- NOTE | 2019-01-14 18:07 | General Surg History&Physical ---
History of Present Illness Patient information: Note initiated : 01/14/19 at 5:58 pm Service Date, if different from initiated Date: [] Patient: Gavin Andrade a 78 y/o M admitted on 01/14/19 for Abd pain and vomiting. Chief Complaint: [] HPI: Mr. Andrade is a 78 year old M admitted with recurrent abdominal pain with nausea and vomiting. The patient has a history of Crohn's ileitis and has a history of partial obstruction dating back to September 2018. Biopsy of terminal ileum confirmed chronic ileitis. He was admitted 26 December through December with similar symptoms. CT scan showed dilated loops of distal small bowel with decompressed colon. He was treated expectantly and improved over 2 days. He was discharged on the third toe and well. He states that he has had recurrent intermittent pain and on. Yesterday, his pain became worse and he had emesis 5. He also had emesis during the night. He has more pain in his right lower quadrant and was seen in the emergency room with evidence of distal small bowel obstruction with inflammation of the terminal ileum. Patient is admitted for treatment. I have discussed with him in the past the knee to have a primary resection with ileal colonic anastomosis and he states that he will consider that this admission. Review of Systems - Constitutional frequent falls, weakness - EENT Nose, mouth and throat: abnormal hearing, disequilibrium, neck pain - Cardiovascular no dyspnea, no dyspnea on exertion, no irregular heart rhythm - Respiratory no cough, no wheezing, no chest congestion - Gastrointestinal abdominal pain, bloating, change in bowel habits, nausea, vomiting - Genitourinary post void dribbling, urinary frequency, urinary hesitancy, urinary incontinence, urinary urgency - Musculoskeletal back pain - Neurological disequilibrium, dizziness - Psychiatric no anxiety, no depression - Endocrine heat intolerance, no fatigue - Hematologic/Lymphatic no easy bleeding, no easy bruising, no lymphadenopathy - Allergic/Immunologic no tongue swelling, no throat swelling, no uticaria, no wheezing, no lip swelling Past History Past medical history: Chronic stable congestive heart failure. History of prior left CVA. BPH with lower urinary tract symptoms. Hypertension. Chronic atrial fibrillation. Obstructive sleep apnea with use of BiPAP. Gastroesophageal reflux disease. Past surgical history: bilateral total hip arthroplasty 2010 History of back surgery 2. Left carotid endarterectomy Past family history: Hypertension. Coronary artery disease. Stroke. Lymphoma Past social history: History of alcohol use. Prior history of tobacco use Denies drug use Medications and Allergies Home Medications Medication Instructions Recorded Confirmed Type aspirin 81 mg tablet 81 mg PO QDAY 12/21/14 01/14/19 History krill oil 500 mg capsule 500 mg PO QNOON cap 12/21/14 01/14/19 History multivitamin 1 tab PO QNOON 12/21/14 01/14/19 History omeprazole 40 mg capsule,delayed 40 mg PO QDAY #90 cap 03/03/18 01/14/19 Rx release budesonide 3 mg 9 mg PO QAM 07/29/18 01/14/19 History capsule,delayed,extended release Metoprolol Succinate [Toprol Xl] 25 mg PO DAILY 10/11/18 01/14/19 History terazosin 5 mg capsule 5 mg PO QDAY #90 cap 11/10/18 01/14/19 Rx Naproxen Sod/Diphenhydram HCl 2 tab PO HS 12/27/18 01/14/19 History [Aleve Pm Caplet] Tamsulosin [Flomax] 0.4 mg PO HS 12/27/18 01/14/19 History losartan 100 1 tab PO QDAY #90 tab 01/07/19 01/14/19 Rx mg-hydrochlorothiazide 25 mg tablet Allergies Allergy/AdvReac Type Severity Reaction Status Date / Time Penicillins [PENICILLINS] Allergy Severe Anaphylaxis Verified 01/14/19 10:27 Exam Temp Pulse Resp BP Pulse Ox 98.4 F 104 H 18 133/94 98 01/14/19 13:35 01/14/19 13:35 01/14/19 13:35 01/14/19 13:35 01/14/19 13:35 - General physical appearance well developed, well nourished, no distress - Eyes PERRL, normal ocular movement - ENT normal pinna, normal nares, normal mucosa, no congestion, decreased hearing - Head Head exam IM: Present: atraumatic, normocephalic - Neck no masses, no bruits, trachea midline, no lymphadenopathy, no venous distension - Cardiovascular Cardiovascular exam IM: Present: irregular rhythm, +S1, +S2 - Respiratory normal expansion, normal respiratory effort, clear to percussion, clear to auscultation - Abdomen Abdomen: Present: soft, tender (tenderness in right lower quadrant without mass), bowel sounds, distended Hernia: Present: none, umbilical (. Small reducible umbilical hernia) - Genitourinary Present: normal penis with no external lesions - Integumentary Present: no rash, no growths, no abnormal pigmentation - Neurologic Present: normal coordination, normal sensation - Musculoskeletal Present: normal gait, normal posture - Psychiatric Present: oriented to time, oriented to person, oriented to place, speech is normal, memory intact Assessment and Plan (1) Small bowel obstruction, partial Status: Acute (2) Crohn's disease Status: Chronic Qualifiers: Gastrointestinal tract location: small intestine Digestive disease complication type: with intestinal obstruction Qualified Code(s): K50.012 - Crohn's disease of small intestine with intestinal obstruction (3) ALAN (obstructive sleep apnea) Status: Chronic (4) Hypertension, essential Status: Chronic
[2019-01-14] MEDS: metroNIDAZOLE 500 MG/100 ML BAG IV SCH ×2 (20:00→23:37)
[2019-01-14] MEDS: TAMSULOSIN 0.4 MG CAPSULE PO SCH (20:00)
[2019-01-14] MEDS: HEPARIN 5,000 UNIT/ML VIAL SQ SCH (20:00)
[2019-01-14] MEDS: methylPREDNISolone SOD SUCC 125 MG/2 ML VIAL IV SCH (20:00)
[2019-01-14] MEDS: 0.9 % SODIUM CHLORIDE 10 ML SYRINGE IV SCH (23:13)
[2019-01-15] MEDS: 0.9 % SODIUM CHLORIDE 1,000 ML IV SCH ×4 (01:56→15:52)
[2019-01-15] MEDS: metroNIDAZOLE 500 MG/100 ML BAG IV SCH ×4 (05:10→23:35)
[2019-01-15 05:16] LABS: Hematocrit 39.6 % (41.0-55.0); Hemoglobin 13.1 g/dL (13.5-16.5); Mean Cell Volume 90.7 fL (80.0-100.0); Mean Corpuscular HGB Conc 33.1 g/dL (31.0-36.0); Mean Platelet Volume 6.7 fL (7.4-10.4); Platelet Count 242 K/mcL (140-440); RBC 4.37 M/mcL (4.50-5.90); Red Cell Distribution Width 15.3 % (11.5-14.5); WBC 3.6 K/mcL (4.5-11.0)
[2019-01-15] MEDS: 0.9 % SODIUM CHLORIDE 10 ML SYRINGE IV SCH ×3 (05:25→22:11)
[2019-01-15 05:35] LABS: ALT/SGPT 14 U/l (0-40); AST/SGOT 14 U/l (0-37); Albumin 3.5 gm/dL (3.2-5.2); Albumin/Globulin Ratio 1.3 (1.0-2.3); Alkaline Phosphatase 60 U/L (39-117); Bilirubin,Direct 0.5 mg/dL (0.0-0.3); Bilirubin,Total 2.1 mg/dL (0.0-1.0); Blood Urea Nitrogen 15 mg/dl (8-23); C-Reactive Protein 4.8 mg/dl (0.0-0.8); Calcium 8.5 mg/dl (8.6-10.4); Carbon Dioxide 23 mmol/L (22-30); Chloride 105 mmol/L (96-108); Globulin 2.7 gm/dL (2.2-3.7); Glomerular Filtration Rate 83; Glucose 186 mg/dL (70-105); Lactate Dehydrogenase 174 U/L (94-250); Triglycerides 77 mg/dl (<150); Uric Acid 5.7 mg/dL (2.5-8.0)
[2019-01-15 06:07] LABS: Band Neutrophils % 2 % (0-10); Lymphocytes % 2 % (15-49); Monocytes % (Manual) 2 % (1-12); Platelet Estimate NORMAL (NORMAL); RBC Morphology NORMAL (NORMAL); Segmented Neutrophils % 94 % (38-78)
--- NOTE | 2019-01-15 07:56 | XRay Report ---
HISTORY: Follow-up small bowel obstruction, abdominal pain and vomiting, Crohn's disease FINDINGS: There are several loops of borderline dilated small intestine in the mid abdomen and left upper quadrant which contain air-fluid levels. They measure up to 3 cm in diameter. The small bowel is less distended today than it was on 01/14/19. The colon is decompressed. No free intra-abdominal air is present. No soft tissue mass is seen. There is contrast in a nondistended urinary bladder, secondary to yesterday's CT scan. 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 Heterotopic calcifications have formed around both hips. IMPRESSION: Improving small bowel obstruction Interpreted and Authenticated by: Matt Shea 01/15/19
[2019-01-15] MEDS: TERAZOSIN 5 MG CAPSULE PO SCH (08:13)
[2019-01-15] MEDS: HYDROCHLOROTHIAZIDE 25 MG TABLET PO SCH (08:13)
[2019-01-15] MEDS: LOSARTAN 50 MG TABLET PO SCH (08:13)
[2019-01-15] MEDS: METOPROLOL SUCCINATE 25 MG TAB.XL.24H PO SCH (08:13)
[2019-01-15] MEDS: HEPARIN 5,000 UNIT/ML VIAL SQ SCH ×2 (08:14→21:51)
[2019-01-15] MEDS: methylPREDNISolone SOD SUCC 125 MG/2 ML VIAL IV SCH ×2 (08:14→21:51)
[2019-01-15] MEDS: LEVOFLOXACIN 750 MG/150 ML BAG IV SCH (08:55)
[2019-01-15] MEDS ORDERED: LOSARTAN/HCTZ 100/25 TABLET PO SCH (09:00)
[2019-01-15] MEDS: TAMSULOSIN 0.4 MG CAPSULE PO SCH (21:51)
[2019-01-16] MEDS: 0.9 % SODIUM CHLORIDE 1,000 ML IV SCH (01:57)
[2019-01-16] MEDS: metroNIDAZOLE 500 MG/100 ML BAG IV SCH ×2 (05:12→12:45)
[2019-01-16 06:28] LABS: ALT/SGPT 11 U/l (0-40); AST/SGOT 13 U/l (0-37); Albumin 3.3 gm/dL (3.2-5.2); Albumin/Globulin Ratio 1.3 (1.0-2.3); Alkaline Phosphatase 51 U/L (39-117); Bilirubin,Total 1.1 mg/dL (0.0-1.0); Blood Urea Nitrogen 13 mg/dl (8-23); Calcium 8.4 mg/dl (8.6-10.4); Carbon Dioxide 23 mmol/L (22-30); Chloride 103 mmol/L (96-108); Globulin 2.5 gm/dL (2.2-3.7); Glomerular Filtration Rate 87; Glucose 157 mg/dL (70-105); Lactate Dehydrogenase 170 U/L (94-250); Phosphorous 2.9 mg/dL (2.7-4.5); Triglycerides 80 mg/dl (<150); Uric Acid 4.9 mg/dL (2.5-8.0)
[2019-01-16 06:34] LABS: Bilirubin,Direct 0.3 mg/dL (0.0-0.3)
[2019-01-16] MEDS: 0.9 % SODIUM CHLORIDE 10 ML SYRINGE IV SCH ×2 (07:47→12:48)
[2019-01-16] MEDS: methylPREDNISolone SOD SUCC 125 MG/2 ML VIAL IV SCH (08:44)
[2019-01-16] MEDS: HEPARIN 5,000 UNIT/ML VIAL SQ SCH (08:44)
[2019-01-16] MEDS: TERAZOSIN 5 MG CAPSULE PO SCH (08:45)
[2019-01-16] MEDS: HYDROCHLOROTHIAZIDE 25 MG TABLET PO SCH (08:45)
[2019-01-16] MEDS: METOPROLOL SUCCINATE 25 MG TAB.XL.24H PO SCH (08:45)
[2019-01-16] MEDS: LOSARTAN 50 MG TABLET PO SCH (08:45)
--- NOTE | 2019-01-16 09:01 | XRay Report ---
HISTORY: Follow-up small bowel obstruction FINDINGS: The bowel pattern is returned to normal with no residual bowel obstruction. No abnormal air-fluid levels are present and there is no free intra-abdominal air. There is no apparent mass or abnormal calcification. IMPRESSION: Resolved small bowel obstruction Interpreted and Authenticated by: Matt Shea 01/16/19
[2019-01-16] MEDS ORDERED: LEVOFLOXACIN 750 MG/150 ML BAG IV SCH (11:00)
[2019-01-16] MEDS: LEVOFLOXACIN 750 MG/150 ML BAG IV SCH (14:19)
--- NOTE | 2019-01-16 18:47 | General Surgery Progress Note ---
Subjective Patient reports: feels better, pain is less, tolerating liquids well, flatus, bowel movement, diarrhea, afebrile Narrative: Note initiated : 01/16/19 at 6:44 pm Service Date, if different from initiated Date: [ 01/15/2019] Patient: Gavin Andrade 78 y/o M admitted on 01/14/19 for Abd pain and vomiting. Chief Complaint: [patient States that he feels much better and he has less tenderness. He does not have nausea. He is afebrile. He has had flatus and more bowel movements.] Objective Temp Pulse Resp BP Pulse Ox 97.4 F 82 16 162/85 98 01/16/19 16:00 01/16/19 03:30 01/16/19 16:00 01/16/19 16:00 01/16/19 16:00 - Additional Data Intake & Output - Last 24 hours: Intake & Output 01/14/19 01/15/19 01/16/19 01/17/19 05:59 05:59 05:59 05:59 Intake Total 2350 3750 2570 Output Total 651 1300 Balance 1699 2450 2570 Weight 223 lb 6.4 oz 232 lb 3.2 oz - General physical appearance well developed, well nourished, no distress - Eyes PERRL, normal ocular movement - ENT normal pinna, normal nares, normal mucosa, no hearing loss, no congestion - Neck no masses, no bruits, trachea midline, no lymphadenopathy, no venous distension - Respiratory normal expansion, normal respiratory effort, clear to auscultation - Cardiovascular Cardiovascular exam: Present: normal rate and rhythm, RRR, +S1, +S2. Absent: JVD, tachycardia - Abdomen tender (minimal tenderness right lower quadrant), bowel sounds (present), surgical scars (none), masses (none) - Integumentary no rash, no growths, no abnormal pigmentation - Neurologic normal coordination, normal sensation - Musculoskeletal normal gait, normal posture - Psychiatric oriented to time, oriented to person, oriented to place, speech is normal, memory intact - Labs 01/15/19 04:09 01/16/19 04:38 Diabetes panel 01/16/19 Range/Units 04:38 Sodium 137 (133-145) mmol/L Potassium 3.7 (3.3-5.1) mmol/L Chloride 103 (96-108) mmol/L Carbon Dioxide 23 (22-30) mmol/L BUN 13 (8-23) mg/dl Creatinine 0.8 (0.7-1.2) mg/dl Glucose 157 H (70-105) mg/dL Calcium 8.4 L (8.6-10.4) mg/dl AST 13 (0-37) U/l ALT 11 (0-40) U/l Alkaline Phosphatase 51 (39-117) U/L Total Protein 5.8 L (5.9-8.4) gm/dL Albumin 3.3 (3.2-5.2) gm/dL Triglycerides 80 (<150) mg/dl Calcium panel 01/16/19 Range/Units 04:38 Calcium 8.4 L (8.6-10.4) mg/dl Phosphorus 2.9 (2.7-4.5) mg/dL Albumin 3.3 (3.2-5.2) gm/dL Pituitary panel 01/16/19 Range/Units 04:38 Sodium 137 (133-145) mmol/L Potassium 3.7 (3.3-5.1) mmol/L Chloride 103 (96-108) mmol/L Carbon Dioxide 23 (22-30) mmol/L BUN 13 (8-23) mg/dl Creatinine 0.8 (0.7-1.2) mg/dl Glucose 157 H (70-105) mg/dL Calcium 8.4 L (8.6-10.4) mg/dl Adrenal panel 01/16/19 Range/Units 04:38 Sodium 137 (133-145) mmol/L Potassium 3.7 (3.3-5.1) mmol/L Chloride 103 (96-108) mmol/L Carbon Dioxide 23 (22-30) mmol/L BUN 13 (8-23) mg/dl Creatinine 0.8 (0.7-1.2) mg/dl Glucose 157 H (70-105) mg/dL Calcium 8.4 L (8.6-10.4) mg/dl Total Bilirubin 1.1 H (0.0-1.0) mg/dL AST 13 (0-37) U/l ALT 11 (0-40) U/l Alkaline Phosphatase 51 (39-117) U/L Total Protein 5.8 L (5.9-8.4) gm/dL Albumin 3.3 (3.2-5.2) gm/dL Assessment and Plan (1) Small bowel obstruction, partial Status: Acute Assessment and plan: Patient continues to improve. If he is improved tomorrow we'll consider discharge home on prednisone and Pentasa with follow-up as an outpatient. Current Visit: Yes (2) Crohn's disease Status: Chronic Assessment and plan: Clinical improvement on present therapy Current Visit: No (3) ALAN (obstructive sleep apnea) Status: Chronic Current Visit: No (4) Hypertension, essential Status: Chronic Current Visit: No - Time Spent With Patient Total time spent is greater than 50% in coordination of care (as documented) at patient's floor/unit and/or counseling patient:
--- NOTE | 2019-01-16 18:49 | Discharge Summary ---
Providers - Providers Patient information: Note initiated : 01/16/19 at 6:48 pm Service Date, if different from initiated Date: [] Patient: Gavin Andrade 78 y/o M admitted on 01/14/19 for Abd pain and vomiting. Chief Complaint: [] Date of admission: 01/14/19 Discharge date: 01/16/19 Attending physician: Collin Florence Hospitalization Hospital Course: 78-year-old male admitted with recurrent abdominal pain with nausea and vomiting. He has a history of Crohn's ileitis with partial obstruction due to stricture dating back to September 2018. Biopsy of the stricture confirmed chronic ileitis. He was previously admitted 26 December through 28 December with similar symptoms. He states that on the day prior to admission he developed recurrent intermittent abdominal pain with emesis 5. He was seen in the emergency room with findings suggestive of distal small bowel obstruction and inflammation of the terminal ileum. Patient has been admitted and has been treated with Solu- Medrol with good response. He is now significantly improved and is tolerating diet without nausea vomiting. He has had multiple bowel movements. Abdominal x-rays shows resolution of dilated small bowel. Patient is stable enough for discharge home on oral prednisone and I will follow him up closely in the office. Discharge diagnosis: partial distal small bowel obstruction Secondary discharge diagnosis: Terminal ileitis with stricture Hypertension Chronic atrial fibrillation Obstructive sleep apnea Gastroesophageal reflux disease Chronic stable congestive heart failure Reason for admission: recurrent abdominal pain with nausea and vomiting Procedures: 9 Pertinent studies/significant findings: CT of abdomen and pelvis with contrast Complications: none Exam Temp Pulse Resp BP Pulse Ox 97.4 F 82 16 162/85 98 01/16/19 16:00 01/16/19 03:30 01/16/19 16:00 01/16/19 16:00 01/16/19 16:00 - General physical appearance well developed, well nourished, no distress - Eyes PERRL, normal ocular movement - ENT normal pinna, normal nares, normal mucosa, no hearing loss, no congestion - Head Head exam IM: Present: atraumatic, normocephalic - Neck no masses, no bruits, trachea midline, no lymphadenopathy, no venous distension - Cardiovascular Cardiovascular exam IM: Present: normal rate and rhythm - Respiratory normal expansion, normal respiratory effort, clear to percussion, clear to auscultation - Abdomen Abdomen: Present: soft, non tender, bowel sounds Hernia: Present: none - Genitourinary Present: normal penis with no external lesions - Integumentary Present: no rash, no growths, no abnormal pigmentation - Neurologic Present: normal coordination, normal sensation - Musculoskeletal Present: normal gait, normal posture - Psychiatric Present: oriented to time, oriented to person, oriented to place, speech is normal, memory intact Discharge Plan - Patient/Caregiver Discharge Instructions Activity: increase activity as tolerated Diet: Low Fiber Prescriptions: Mesalamine [Pentasa] 1,000 mg PO QID #100 cap Transmission Status: Pending to [facility] predniSONE [Prednisone] 20 mg PO TID #100 tab Transmission Status: Pending to [facility] - Follow up Plan Follow up with: Evan Oleary PA-C [Primary Care Provider] - Disposition: Home, Self-Care Prognosis: Good Rehab Potential: Good (is already every 8 when necessary) I certify that the patient requires SNF services.: No ( so she is is) Overall status at discharge: patient is back to baseline Pending Studies Resuscitation Status Full Code Diet Clear Liquid Diet Start SatJan 14 1649 Heparin Sodium (Porcine) (Heparin) 5,000 unit SQ Q12 [facility] Last Admin: 01/16/19 08:44 Dose: 5,000 unit Documented by: Admin: 01/15/19 21:51 Dose: 5,000 unit Documented by: Admin: 01/15/19 08:14 Dose: 5,000 unit Documented by: Admin: 01/14/19 20:00 Dose: 5,000 unit Documented by: ANITA Hydrochlorothiazide (Oretic) 25 mg PO DAILY [facility] Last Admin: 01/16/19 08:45 Dose: 25 mg Documented by: Admin: 01/15/19 08:13 Dose: 25 mg Documented by: PALMER Sodium Chloride (Sodium Chloride 0.9%) 1,000 mls @ 125 mls/hr IV .Q8H [facility] Last Infusion: 01/16/19 14:18 Dose: 0 mls/hr Documented by: Admin: 01/16/19 01:57 Dose: 125 mls/hr Documented by: Infusion: 01/15/19 23:52 Dose: 125 mls/hr Documented by: Admin: 01/15/19 15:52 Dose: 125 mls/hr Documented by: Admin: 01/15/19 14:56 Dose: Not Given Documented by: Infusion: 01/15/19 12:10 Dose: 125 mls/hr Documented by: Admin: 01/15/19 04:10 Dose: 125 mls/hr Documented by: Admin: 01/15/19 01:56 Dose: Not Given Documented by: Infusion: 01/15/19 01:23 Dose: 125 mls/hr Documented by: Admin: 01/14/19 17:23 Dose: 125 mls/hr Documented by: [email or web address] Metronidazole (Flagyl) 500 mg in 100 mls @ 100 mls/hr IV Q6H [facility]; Protocol Last Infusion: 01/16/19 14:02 Dose: 0 mls/hr Documented by: Admin: 01/16/19 12:45 Dose: 100 mls/hr Documented by: Infusion: 01/16/19 06:15 Dose: 0 mls/hr Documented by: Admin: 01/16/19 05:12 Dose: 100 mls/hr Documented by: Infusion: 01/16/19 00:35 Dose: 100 mls/hr Documented by: Admin: 01/15/19 23:35 Dose: 100 mls/hr Documented by: Infusion: 01/15/19 18:38 Dose: 100 mls/hr Documented by: Admin: 01/15/19 17:38 Dose: 100 mls/hr Documented by: [email or web address] Levofloxacin (Levaquin) 750 mg in 150 mls @ 100 mls/hr IV Q24H [facility]; Protocol Last Titration: 01/16/19 12:44 Dose: 0 mls/hr, 0 mls/hr Documented by: Admin: 01/16/19 10:52 Dose: 100 mls/hr, 100 mls/hr Documented by: [email or web address] Losartan Potassium (Cozaar) 100 mg PO DAILY [facility] Last Admin: 01/16/19 08:45 Dose: 100 mg Documented by: Admin: 01/15/19 08:13 Dose: 100 mg Documented by: [email or web address] Methylprednisolone Sodium Succinate (Solu-Medrol) 62.5 mg IV Q12 [facility] Last Admin: 01/16/19 08:44 Dose: 62.5 mg Documented by: Admin: 01/15/19 21:51 Dose: 62.5 mg Documented by: Admin: 01/15/19 08:14 Dose: 62.5 mg Documented by: Admin: 01/14/19 20:00 Dose: 62.5 mg Documented by: ANITA Metoprolol Succinate (Toprol Xl) 25 mg PO DAILY [facility] Last Admin: 01/16/19 08:45 Dose: 25 mg Documented by: Admin: 01/15/19 08:13 Dose: 25 mg Documented by: PALMER Morphine Sulfate (Morphine) 2 mg IV Q5MIN PRN; Protocol PRN Reason: PAIN LEVEL > 6 Last Admin: 01/14/19 12:15 Dose: 2 mg Documented by: NADINE Morphine Sulfate (Morphine) 2 mg IV Q5MIN PRN PRN Reason: Chest Pain Last Admin: 01/14/19 14:38 Dose: 2 mg Documented by: LOLI Ondansetron HCl (Zofran) 4 mg IV Q6HP PRN PRN Reason: Nausea And Vomiting Last Admin: 01/14/19 20:10 Dose: 4 mg Documented by: ANITA Sodium Chloride (Saline Flush) 10 ml IV Q8 [facility] Last Admin: 01/16/19 12:48 Dose: Not Given Documented by: Admin: 01/16/19 07:47 Dose: Not Given Documented by: Admin: 01/15/19 22:11 Dose: Not Given Documented by: Admin: 01/15/19 13:04 Dose: Not Given Documented by: Admin: 01/15/19 05:25 Dose: Not Given Documented by: Admin: 01/14/19 23:13 Dose: Not Given Documented by: ANITA Tamsulosin HCl (Flomax) 0.4 mg PO HS [facility] Last Admin: 01/15/19 21:51 Dose: 0.4 mg Documented by: Admin: 01/14/19 20:00 Dose: 0.4 mg Documented by: ANITA Terazosin HCl (Hytrin) 5 mg PO QDAY [facility] Last Admin: 01/16/19 08:45 Dose: 5 mg Documented by: Admin: 01/15/19 08:13 Dose: 5 mg Documented by: [email or web address] Shift Summary 01/16/19 03:02 Shift Summary by Camilo Villaseñor Pt rested well through the night. Pt up to BR independently without difficulty with IV pole. Pt cont with 20 ga IV to right FA with NS infusing at 125 mL per hour. Pt has denied pain or nausea. Pt has had 1 incont stool. Pt able to do pericare independently. Pt cont to recieve Flagyl IV Q6 hours. Pt A & O times 4. Plan for AM abd xray to determine further course of therapy. Initialized on 01/16/19 03:02 - END OF NOTE
== END 2019-01-16 19:36 | disposition home or self-care (01) | DRG 386 ==
LOC: ED 10:27 → MEDSUR 10:27
PROVIDERS: ADMIT Family Medicine Adult Medicine; ATTEND Family Medicine Adult Medicine

== ENCOUNTER 2019-02-20 10:16 | Inpatient (IN) ==
[2019-02-20] MEDS ORDERED: 0.9 % SODIUM CHLORIDE 1,000 ML IV ONE ×2 (10:52→13:28)
--- NOTE | 2019-02-20 10:55 | Emergency Department Note ---
Abdominal Pain HPI - General Chief Complaint: Abdominal Pain Stated Complaint: Abd pain, constipation Time Seen by Provider: 02/20/19 10:34 Source: patient, family Mode of arrival: ambulatory Limitations: no limitations - History of Present Illness HPI Narrative: 78-year-old male patient presents emergency department with chief complaint of recurrent abdominal pain and constipation. Patient has known history of Crohn's disease resulting in multiple small bowel obstructions. He was recently hospitalized in December and seen by her general surgeon (Dr. Florence) and started on both prednisone and mesalamine. Today, patient tells me he feels "blocked". He did have a very small bowel movement today. He admits to vomiting x1 today. He denies hematemesis, hematochezia, or hematuria. She admits to fevers last night and chills. He denies sinus congestion, runny nose, or cough. He denies shortness of breath. He denies retrosternal chest pain or palpitations. He admits to abdominal bloating and mild pain. He is not nauseated right now. He denies dysuria. He denies focal weakness. He admits to fluid retention and lower extremity edema. A review of his active problems shows the following: Small bowel obstruction, hayfever, pedal edema, CHF, elevated PSA, urinary tract infection, Crohn's disease, stroke (in 2013), arthritis, prediabetes, ALAN, obesity, hypertension, hyperlipidemia, gout, esophageal reflux, bilateral hip pain, and chronic back pain. - Related Data Home Medications Medication Instructions Recorded Confirmed aspirin 81 mg tablet 81 mg PO QDAY 12/21/14 02/20/19 krill oil 500 mg capsule 500 mg PO QNOON cap 12/21/14 02/20/19 multivitamin 1 tab PO QNOON 12/21/14 02/20/19 budesonide 3 mg 9 mg PO QAM 07/29/18 02/20/19 capsule,delayed,extended release Metoprolol Succinate [Toprol Xl] 25 mg PO DAILY 10/11/18 02/20/19 Tamsulosin [Flomax] 0.4 mg PO HS 12/27/18 02/20/19 Previous Rx's Medication Instructions Recorded omeprazole 40 mg capsule,delayed 40 mg PO QDAY #90 cap 03/03/18 release sulfasalazine 500 mg tablet 1 g PO Q6H #120 tab 01/19/19 prednisone 20 mg tablet 20 mg PO BID #100 tab 01/26/19 promethazine 25 mg tablet 25 mg PO Q4H PRN #30 tab 02/04/19 Allergies Allergy/AdvReac Type Severity Reaction Status Date / Time Penicillins [PENICILLINS] Allergy Severe Anaphylaxis Verified 02/20/19 10:16 Review of Systems All systems ED: reviewed and negative except as stated. Abdominal Pain PMH - Past Medical History Medical history: Reports: CHF, DM, GERD, other - Social History Smoking status: Never smoker Alcohol use: Reports: None Drug use: Reports: none Physical Exam Limitations: no limitations General appearance: alert, grimacing (Mild grimace during abdominal examination.), in no apparent distress Head: atraumatic, normocephalic Eye: Present: normal appearance, PERRL, EOMI. Absent: scleral icterus, conjunctival injection ENT: Present: normal oropharynx, mucous membranes dry Neck: Present: trachea midline. Absent: lymphadenopathy, thyromegaly Chest: Present: symmetric chest wall rise Respiratory: Present: normal lung sounds bilaterally. Absent: respiratory distress, wheezes, stridor, accessory muscle use, prolonged expiratory phase Cardiovascular: Present: regular rate, normal rhythm. Absent: systolic murmur, diastolic murmur Abdominal: Present: soft, tenderness (Mild tenderness to palpation of the left upper quadrant and right lower quadrant.), hyperactive bowel sounds, other (Abdominal percussion eliciting hypertympany to the left upper quadrant.). Absent: distention, guarding, rebound, rigidity, organomegaly, mass Extremities: Present: normal inspection, full ROM, normal capillary refill, pedal edema (Considerable +2 pitting edema throughout the ankle extending up to mid calf.), pretibial edema. Absent: calf tenderness Back: Present: full ROM. Absent: tenderness Neurological: Present: alert, oriented X3 Psychiatric: Present: normal affect, normal mood Skin: Present: warm, dry Course Course Narrative: Patient was brought into the emergency department and a history physical exam was performed. Saline lock was established and laboratory studies were drawn. Abdominal x-ray was obtained looking for bowel obstruction. Normal saline was started at 500 mL bolus. Patient became somewhat nauseated and was given Zofran 8 mg IVP. A review of the patient laboratory studies show the following: CBC RBC 4.32, hemoglobin 13.2, hematocrit 40.4, platelet 127, granulocyte percent 87.0, granulocyte #4.0. CMP glucose 163, sodium 132, chloride 95, total bilirubin 1.1, all others normal limits. Lactic acid 3.1. Abdominal x-ray series showing mid to distal small bowel obstruction. After reviewing all the data I discussed these findings with the patient. At this time he does have a bowel obstruction and will likely need admission. I reached out to the on-call surgeon (Dr. Collazo) I discussed the case with him. At this time he concurred with admission. He mentioned that he would be down later to evaluate the patient. Patient is now resting comfortably on the emergency room [facility] in no distress. As mentioned, he is going to be admitted to the hospital of the care of Dr. Collazo. All further treatment decisions will be carried out by Dr. Collazo. Vital Signs Temperature 97.2 F 02/20/19 10:16 Pulse Rate 94 H 02/20/19 10:16 Respiratory Rate 16 02/20/19 10:16 Blood Pressure 109/63 02/20/19 10:16 Pulse Oximetry (%) 97 02/20/19 10:16 Temperature 97.2 F 02/20/19 10:16 Pulse Rate 94 H 02/20/19 10:16 Respiratory Rate 16 02/20/19 10:16 Blood Pressure 109/63 02/20/19 10:16 Pulse Oximetry (%) 97 02/20/19 10:16 Abdominal Pain - Lab Data Lab results reviewed: Yes I reviewed the patient's lab results. Result diagrams: 02/20/19 11:16 02/20/19 11:16 Lab Results 02/20/19 02/20/19 02/20/19 Range/Units 11:16 11:16 11:24 WBC 4.8 (4.5-11.0) K/mcL RBC 4.32 L (4.50-5.90) M/mcL Hgb 13.2 L (13.5-16.5) g/dL Hct 40.4 L (41.0-55.0) % MCV 93.4 (80.0-100.0) fL MCH 30.6 (26.0-34.0) pg MCHC 32.8 (31.0-36.0) g/dL RDW 16.5 H (11.5-14.5) % Plt Count 127 L (140-440) K/mcL MPV 6.4 L (7.4-10.4) fL Gran % 87.0 H (38.0-78.0) % Lymph % (Auto) 5.9 L (15.5-49.0) % [place] % (Auto) 6.4 (1.0-12.0) % Eos % (Auto) 0.6 (0.0-7.0) % Baso % (Auto) 0.1 (0.0-2.0) % Gran # 4.1 (1.8-8.0) K/mcL Lymph # (Auto) 0.3 L (1.5-4.8) K/mcL [place] # (Auto) 0.3 (0.1-0.9) K/mcL Eos # (Auto) 0 (0.0-0.7) K/mcL Baso # (Auto) 0 (0.0-0.3) K/mcL VBG Lactic Acid 3.1 H (0.5-2.0) mmol/L Sodium 132 L (133-145) mmol/L Potassium 4.0 (3.3-5.1) mmol/L Chloride 95 L (96-108) mmol/L Carbon Dioxide 25 (22-30) mmol/L Anion Gap 12.0 (8-16) BUN 12 (8-23) mg/dl Creatinine 0.8 (0.7-1.2) mg/dl GFR Calculation 87 Glucose 163 H (70-105) mg/dL Calcium 9.1 (8.6-10.4) mg/dl Total Bilirubin 1.1 H (0.0-1.0) mg/dL AST 25 (0-37) U/l ALT 36 (0-40) U/l Alkaline Phosphatase 56 (39-117) U/L Total Protein 6.0 (5.9-8.4) gm/dL Albumin 3.2 (3.2-5.2) gm/dL Globulin 2.8 (2.2-3.7) gm/dL Albumin/Globulin Ratio 1.1 (1.0-2.3) Urine Color Urine Appearance Urine pH (5.0-9.0) Ur Specific [place] (1.000-1.035) Urine Protein (NEG) mg/dL Urine Glucose (UA) (NEG) mg/dL Urine Ketones (NEG) mg/dL Urine Occult Blood (<0.03) mg/dL Urine Nitrate (NEG) Urine Bilirubin (NEG) mg/dL Urine Ictotest (NEG) Urine Urobilinogen (NEG) mg/dL Ur Leukocyte Esterase (NEG) /uL Urine RBC (0-1) /hpf Urine WBC (0-4) /hpf Ur Squamous Epith Cells (0-4) /hpf Calcium Oxalate Crystal (0) /hpf Urine Bacteria (0) /hpf Hyaline Casts (0-2) /lpf Urine Mucus (0) /hpf Ur Culture Indicated? 02/20/19 Range/Units 13:15 WBC (4.5-11.0) K/mcL RBC (4.50-5.90) M/mcL Hgb (13.5-16.5) g/dL Hct (41.0-55.0) % MCV (80.0-100.0) fL MCH (26.0-34.0) pg MCHC (31.0-36.0) g/dL RDW (11.5-14.5) % Plt Count (140-440) K/mcL MPV (7.4-10.4) fL Gran % (38.0-78.0) % Lymph % (Auto) (15.5-49.0) % [place] % (Auto) (1.0-12.0) % Eos % (Auto) (0.0-7.0) % Baso % (Auto) (0.0-2.0) % Gran # (1.8-8.0) K/mcL Lymph # (Auto) (1.5-4.8) K/mcL [place] # (Auto) (0.1-0.9) K/mcL Eos # (Auto) (0.0-0.7) K/mcL Baso # (Auto) (0.0-0.3) K/mcL VBG Lactic Acid (0.5-2.0) mmol/L Sodium (133-145) mmol/L Potassium (3.3-5.1) mmol/L Chloride (96-108) mmol/L Carbon Dioxide (22-30) mmol/L Anion Gap (8-16) BUN (8-23) mg/dl Creatinine (0.7-1.2) mg/dl GFR Calculation Glucose (70-105) mg/dL Calcium (8.6-10.4) mg/dl Total Bilirubin (0.0-1.0) mg/dL AST (0-37) U/l ALT (0-40) U/l Alkaline Phosphatase (39-117) U/L Total Protein (5.9-8.4) gm/dL Albumin (3.2-5.2) gm/dL Globulin (2.2-3.7) gm/dL Albumin/Globulin Ratio (1.0-2.3) Urine Color Aminata Urine Appearance Clear Urine pH 6.0 (5.0-9.0) Ur Specific [place] 1.030 (1.000-1.035) Urine Protein 30 A (NEG) mg/dL Urine Glucose (UA) Negative (NEG) mg/dL Urine Ketones Neg (NEG) mg/dL Urine Occult Blood Neg (<0.03) mg/dL Urine Nitrate Neg (NEG) Urine Bilirubin 0.2-1.0 (normal) (NEG) mg/dL Urine Ictotest Neg (NEG) Urine Urobilinogen 4.0 A (NEG) mg/dL Ur Leukocyte Esterase 25 A (NEG) /uL Urine RBC 2 H (0-1) /hpf Urine WBC 15 H (0-4) /hpf Ur Squamous Epith Cells 0 (0-4) /hpf Calcium Oxalate Crystal Mod A (0) /hpf Urine Bacteria 0 (0) /hpf Hyaline Casts 3 H (0-2) /lpf Urine Mucus Many A (0) /hpf Ur Culture Indicated? Yes - Radiology Data Radiology results reviewed: Yes I reviewed the patient's radiology results. Ordering Physician: Vladimir Pandey PA-C Date of Service: 02/20/19 Procedure(s): XR abdomen 2V Accession Number(s): [id number] HISTORY: Abdominal pain, nausea, vomiting and obstruction to findings there are multiple dilated loops of small intestine in the mid and upper abdomen which contain air-fluid levels. Small intestine measures up to 4.3 cm in transverse dimension. The colon is decompressed. There is an air-fluid level in a nondistended stomach. No free intraperitoneal air is present. There is no para soft tissue mass. Comparison with the prior exam from 01/16/19 shows the small bowel dilatation is a new finding. FINDINGS: Mid to distal small bowel obstruction IMPRESSION: Interpreted and Authenticated by: Matt Shea 02/20/19 Disposition Pt seen by PROFESSIONAL HEALTHCARE REPRESENTATIVE/PA only: Yes Clinical Impression: Small bowel obstruction Disposition: Xfer As Outpt/Obs ([facility]) Condition: Good Additional Instructions: Patient is going to be admitted to the hospital under the care of the general surgeon (Dr. Collazo). All further treatment decisions and modalities to be carried out by Dr. Collazo. Referrals: Evan Oleary PA-C [Primary Care Provider] - Time of Disposition: 13:14
[2019-02-20] MEDS ORDERED: ONDANSETRON 4 MG/2 ML VIAL IV ONE (11:26)
--- NOTE | 2019-02-20 11:27 | XRay Report ---
HISTORY: Abdominal pain, nausea, vomiting and obstruction to findings there are multiple dilated loops of small intestine in the mid and upper abdomen which contain air-fluid levels. Small intestine measures up to 4.3 cm in transverse dimension. The colon is decompressed. There is an air-fluid level in a nondistended stomach. No free intraperitoneal air is present. There is no para soft tissue mass. Comparison with the prior exam from 01/16/19 shows the small bowel dilatation is a new finding. FINDINGS: Mid to distal small bowel obstruction IMPRESSION: Interpreted and Authenticated by: Matt Shea 02/20/19
[2019-02-20 11:50] LABS: Basophils # (Auto) 0 K/mcL (0.0-0.3); Basophils % (Auto) 0.1 % (0.0-2.0); Eosinophils # (Auto) 0 K/mcL (0.0-0.7); Eosinophils % (Auto) 0.6 % (0.0-7.0); Hematocrit 40.4 % (41.0-55.0); Hemoglobin 13.2 g/dL (13.5-16.5); Lymphocytes # (Auto) 0.3 K/mcL (1.5-4.8); Lymphocytes % (Auto) 5.9 % (15.5-49.0); Mean Cell Volume 93.4 fL (80.0-100.0); Mean Corpuscular HGB Conc 32.8 g/dL (31.0-36.0); Mean Platelet Volume 6.4 fL (7.4-10.4); Monocytes # (Auto) 0.3 K/mcL (0.1-0.9); Monocytes % (Auto) 6.4 % (1.0-12.0); Platelet Count 127 K/mcL (140-440); RBC 4.32 M/mcL (4.50-5.90); Red Cell Distribution Width 16.5 % (11.5-14.5); WBC 4.8 K/mcL (4.5-11.0)
[2019-02-20 12:08] LABS: ALT/SGPT 36 U/l (0-40); AST/SGOT 25 U/l (0-37); Albumin 3.2 gm/dL (3.2-5.2); Albumin/Globulin Ratio 1.1 (1.0-2.3); Alkaline Phosphatase 56 U/L (39-117); Bilirubin,Total 1.1 mg/dL (0.0-1.0); Blood Urea Nitrogen 12 mg/dl (8-23); Calcium 9.1 mg/dl (8.6-10.4); Carbon Dioxide 25 mmol/L (22-30); Globulin 2.8 gm/dL (2.2-3.7); Glomerular Filtration Rate 87; Glucose 163 mg/dL (70-105)
[2019-02-20 12:09] LABS: Chloride 95 mmol/L (96-108)
[2019-02-20] MEDS ORDERED: ONDANSETRON 4 MG/2 ML VIAL IV PRN (13:41)
[2019-02-20] MEDS ORDERED: ACETAMINOPHEN 325 MG TABLET PO PRN (13:41)
[2019-02-20] MEDS ORDERED: methylPREDNISolone SOD SUCC 40 MG/ML VIAL IV ONE (13:50)
[2019-02-20 13:52] LABS: Appearance,Urine CLEAR; Bacteria,Urine 0 /hpf (0); Bilirubin,Urine 0.2-1.0 (NORMAL) mg/dL (NEG); Calcium Oxalate Crystals,Urine MOD /hpf (0); Color,Urine AMBER; Culture Indicated,Urine YES; Glucose,Urine (UA) NEGATIVE (NEG); Ictotest,Urine NEG (NEG); Ketones,Urine NEG (NEG); Leukocyte Esterase,Urine 25 /uL (NEG); Mucus,Urine MANY /hpf (0); Nitrate,Urine NEG (NEG); Protein,Urine 30 mg/dL (NEG); Urine Blood NEG mg/dL (<0.03); Urine Hyaline Cast 3 /lpf (0-2); Urine RBC 2 /hpf (0-1); Urine Squamous Epithelial Cell 0 /hpf (0-4); Urine WBC 15 /hpf (0-4)
--- NOTE | 2019-02-20 13:55 | General Surg History&Physical ---
History of Present Illness Patient information: Note initiated : 02/20/19 at 1:52 pm Service Date, if different from initiated Date: [] Patient: Gavin Andrade a 78 y/o M admitted on for Abd pain, constipation. Chief Complaint: [] Chief complaint: bloating, nausea HPI: Mr. Andrade is a 78 year old M 78 yo man with documented Crohn's disease & distal ileal stricture - with current plans for elective resection in early February by Dr. Florence. Last H&P had the following history by Dr. Florence: Mr. Andrade is a 78 year old M admitted with recurrent abdominal pain with nausea and vomiting. The patient has a history of Crohn's ileitis and has a history of partial obstruction dating back to September 2018. Biopsy of terminal ileum confirmed chronic ileitis. He was admitted 26 December through December with similar symptoms. CT scan showed dilated loops of distal small bowel with decompressed colon. He was treated expectantly and improved over 2 days. He was discharged on the third toe and well. He states that he has had recurrent intermittent pain and on. Yesterday, his pain became worse and he had emesis 5. He also had emesis during the night. He has more pain in his right lower quadrant and was seen in the emergency room with evidence of distal small bowel obstruction with inflammation of the terminal ileum. Patient is admitted for treatment. I have discussed with him in the past the knee to have a primary resection with ileal colonic anastomosis and he states that he will consider that this admission. He was on 60mg Prednisone - cut back to 40mg a couple of weeks ago due to weakness mainly in legs. Saturday he cut back from 40 to 20 on his own and by that afternoon was having increasing problems with bloating, N, pain, and even some fevers & chills. Got worse last couple of days - finally convinced him to come in to ER today. He has vomited 3 times today. Feels better since in ER with some pain meds. Had small Bm earlier today. Review of Systems - Constitutional anorexia, chills, fatigue, fever(s), malaise, no headache(s), no increased appetite, no night sweats, no weight gain, no weight loss - EENT Nose, mouth and throat: no headache(s), no neck pain, no odynophagia, no sinus pain - Cardiovascular edema, irregular heart rhythm, leg edema, palpatations, pedal edema, rapid heart rate, no chest pain, no chest pain at rest, no chest pain with activity, no claudication, no diaphoresis, no dyspnea, no dyspnea on exertion, no radiating jaw, neck or arm pain, no orthopnea, no paroxysmal nocturnal dyspnea - Respiratory no cough, no dyspnea, no hemoptysis, no dyspnea on exertion, no wheezing - Gastrointestinal as per HPI, no change in stool character, no coffee ground emesis, no dysphagia, no fecal incontinence, no hematemesis, no hematochezia, no melena - Genitourinary no change in urinary stream, no difficulty urinating, no hematuria, no urinary frequency, no urinary urgency - Musculoskeletal arthralgias, numbness, tingling, no back pain, no limited range of motion, no muscle weakness, no myalgias - Integumentary unusual bruising, no changing lesions, no rash - Neurological numbness (fingers & toes on occasion), sensory deficit, tingling, other (had CVA few years back left his dominant index/thumb a little uncoordinated), no abnormal gait, no abnormal hearing, no confusion, no convulsions, no focal weakness, no frequent falls, no loss of vision, no memory loss, no syncope - Psychiatric as per HPI, no anxiety, no confusion, no depression, no memory loss - Endocrine no cold intolerance, no excessive sweating, no flushing, no heat intolerance - Hematologic/Lymphatic easy bleeding, easy bruising (on prednisone high doses) - Allergic/Immunologic no tongue swelling, no itchy eyes, no seasonal rhinorrhea, no uticaria, no wheezing Past History Past medical history: Afib on EKG 01/13 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 HTN Past surgical history: Bilateral THR Left CEA Eye surgery x 2 Past family history: no history changes since previous H&P Past social history: Retired [employer] No tobacco or other drugs No EtOH Medications and Allergies Home Medications Medication Instructions Recorded Confirmed Type aspirin 81 mg tablet 81 mg PO QDAY 12/21/14 02/20/19 History krill oil 500 mg capsule 500 mg PO QNOON cap 12/21/14 02/20/19 History multivitamin 1 tab PO QNOON 12/21/14 02/20/19 History omeprazole 40 mg capsule,delayed 40 mg PO QDAY #90 cap 03/03/18 02/20/19 Rx release budesonide 3 mg 9 mg PO QAM 07/29/18 02/20/19 History capsule,delayed,extended release Metoprolol Succinate [Toprol Xl] 25 mg PO DAILY 10/11/18 02/20/19 History Tamsulosin [Flomax] 0.4 mg PO HS 12/27/18 02/20/19 History sulfasalazine 500 mg tablet 1 g PO Q6H #120 tab 01/19/19 02/20/19 Rx prednisone 20 mg tablet 20 mg PO BID #100 tab 01/26/19 02/20/19 Rx promethazine 25 mg tablet 25 mg PO Q4H PRN #30 tab 02/04/19 02/20/19 Rx Allergies Allergy/AdvReac Type Severity Reaction Status Date / Time Penicillins [PENICILLINS] Allergy Severe Anaphylaxis Verified 02/20/19 10:16 Exam Temp Pulse Resp BP Pulse Ox 97.2 F 94 H 16 109/63 97 02/20/19 10:16 02/20/19 10:16 02/20/19 10:16 02/20/19 10:16 02/20/19 10:16 - General physical appearance well developed, well nourished, no distress, no pain, obese - Eyes PERRL, normal ocular movement - ENT normal nares, normal mucosa, no hearing loss - Head Head exam IM: Present: atraumatic, normocephalic - Neck no masses, no bruits, trachea midline, no venous distension, other (L CEA scar) - Cardiovascular Cardiovascular exam IM: Present: irregular rhythm Peripheral pulses: 3+/4+: carotid (L), carotid (R), radial (L), radial (R) - Respiratory normal expansion, normal respiratory effort, clear to percussion, clear to auscultation - Abdomen Abdomen: Present: soft, non tender, bowel sounds, distended (mildly so). Absent: surgical scars, guarding, rigid, rebound Hernia: Present: none - Integumentary Present: no rash, no growths, no abnormal pigmentation, other (lots of echhymoses) - Neurologic Present: normal coordination, normal sensation - Musculoskeletal Present: normal gait, normal posture - Psychiatric Present: oriented to time, oriented to person, oriented to place, speech is normal, memory intact Results - Results Labs: Normal WBC & H/H Na & Cl low Cr normal Abdominal x-ray: report reviewed, image reviewed (some mild SB dilation - not many A/F levels) EKG: other (old EKG shows Afib with LBBB) Assessment and Plan (1) Partial obstruction of small intestine He does not have an acute abdomen - no need for emergent intervention Likely due to too rapid self tapering of Prednisone Will admit for bowel rest, IV hydration. Will give him today's steroid dose IV - continue his regular meds & reassess labs, exam, xrays in AM Status: Acute Priority: High (2) Hypertension, essential Status: Chronic (3) Obesity Status: Chronic Qualifiers: Obesity type: due to excess calories Obesity classification: adult class 1 (BMI 30 - 34.9) Serious obesity comorbidity presence: without serious comorbidity Body mass index: BMI 33.0-33.9 Qualified Code(s): E66.09 - Other obesity due to excess calories; Z68.33 - Body mass index (BMI) 33.0-33.9, adult (4) Stroke Status: Chronic Priority: Low Comment: Oct 2013 Qualifiers: CVA mechanism: embolism Precerebral and cerebral artery: unspecified precerebral artery Qualified Code(s): I63.10 - Cerebral infarction due to embolism of unspecified precerebral artery (5) Urinary hesitancy Status: Resolved (6) Crohn's disease Status: Chronic Priority: High Qualifiers: Gastrointestinal tract location: small intestine Digestive disease complication type: with intestinal obstruction Qualified Code(s): K50.012 - Crohn's disease of small intestine with intestinal obstruction
[2019-02-20] MEDS: 0.9 % SODIUM CHLORIDE 10 ML SYRINGE IV SCH ×2 (15:11→21:40)
[2019-02-20] MEDS: 0.9 % SODIUM CHLORIDE 1,000 ML IV SCH (15:27)
[2019-02-20] MEDS: sulfaSALAzine 500 MG TABLET PO SCH ×2 (15:28→21:40)
[2019-02-20] MEDS ORDERED: ZOLPIDEM 5 MG TABLET PO PRN (21:00)
[2019-02-20] MEDS ORDERED: TAMSULOSIN 0.4 MG CAPSULE PO SCH (21:00)
[2019-02-21] MEDS: 0.9 % SODIUM CHLORIDE 1,000 ML IV SCH ×2 (01:36→10:50)
[2019-02-21] MEDS: sulfaSALAzine 500 MG TABLET PO SCH ×2 (04:58→09:28)
[2019-02-21 06:33] LABS: Basophils # (Auto) 0 K/mcL (0.0-0.3); Basophils % (Auto) 0.2 % (0.0-2.0); Eosinophils # (Auto) 0 K/mcL (0.0-0.7); Eosinophils % (Auto) 0.6 % (0.0-7.0); Granulocytes % (Auto) 84.5 % (38.0-78.0); Hematocrit 36.6 % (41.0-55.0); Hemoglobin 12.1 g/dL (13.5-16.5); Lymphocytes # (Auto) 0.5 K/mcL (1.5-4.8); Lymphocytes % (Auto) 9.2 % (15.5-49.0); Mean Cell Volume 94.3 fL (80.0-100.0); Monocytes # (Auto) 0.3 K/mcL (0.1-0.9); Monocytes % (Auto) 5.5 % (1.0-12.0); Platelet Count 137 K/mcL (140-440); RBC 3.88 M/mcL (4.50-5.90); Red Cell Distribution Width 16.3 % (11.5-14.5); WBC 5.5 K/mcL (4.5-11.0)
[2019-02-21 06:39] LABS: Blood Urea Nitrogen 11 mg/dl (8-23); Calcium 8.4 mg/dl (8.6-10.4); Carbon Dioxide 20 mmol/L (22-30); Chloride 102 mmol/L (96-108); Glucose 106 mg/dL (70-105)
[2019-02-21 06:57] LABS: Glomerular Filtration Rate 98
[2019-02-21] MEDS: 0.9 % SODIUM CHLORIDE 10 ML SYRINGE IV SCH (07:24)
[2019-02-21] MEDS ORDERED: OMEPRAZOLE 20 MG CAPSULE PO SCH (07:30)
[2019-02-21] MEDS ORDERED: predniSONE 20 MG TABLET PO SCH (08:00)
--- NOTE | 2019-02-21 08:00 | Discharge Summary ---
Providers - Providers Patient information: Note initiated : 02/21/19 at 7:59 am Service Date, if different from initiated Date: [] Patient: Gavin Andrade a 78 y/o M admitted on 02/20/19 for Abd pain, constipation. Chief Complaint: [] Date of admission: 02/20/19 Discharge date: 02/21/19 Attending physician: Oscar Collazo Hospitalization Hospital Course: 78 yo man with documented Crohn's disease & distal ileal stricture - with current plans for elective resection in early February by Dr. Florence. Last H&P had the following history by Dr. Florence: Mr. Andrade is a 78 year old M admitted with recurrent abdominal pain with nausea and vomiting. The patient has a history of Crohn's ileitis and has a history of partial obstruction dating back to September 2018. Biopsy of terminal ileum confirmed chronic ileitis. He was admitted 26 December through December with similar symptoms. CT scan showed dilated loops of distal small bowel with decompressed colon. He was treated expectantly and improved over 2 days. He was discharged on the third toe and well. He states that he has had recurrent intermittent pain and on. Yesterday, his pain became worse and he had emesis 5. He also had emesis during the night. He has more pain in his right lower quadrant and was seen in the emergency room with evidence of distal small bowel obstruction with inflammation of the terminal ileum. Patient is admitted for treatment. I have discussed with him in the past the knee to have a primary resection with ileal colonic anastomosis and he states that he will consider that this admission. He was on 60mg Prednisone - cut back to 40mg a couple of weeks ago due to weakness mainly in legs. Saturday he cut back from 40 to 20 on his own and by that afternoon was having increasing problems with bloating, N, pain, and even some fevers & chills. Got worse last couple of days - finally convinced him to come in to ER today. He has vomited 3 times today. Feels better since in ER with some pain meds. Had small Bm earlier today. Pt admitted 02/20 in afternoon with signs & symptoms consistent with PSBO. Overnite after receiving his missed IV dose of steroids - he did amazingly well. Continued on IV NS. He denies any further nausea - no vomiting -has had 4 liquid stools. Took ice chips & water and then clear liquids with no problems. Required no analgesics or anti-emetics. Labs remained stable - Na & Cl corrected with IV NaCL - xrays morning after admission showed all the air in SB resolved and now in his colon. He denies any urinary frequency or urgency or dysuria - CC Urine day of admission showed > 100K E coli so we will treat this. Discharge diagnosis: Partial small bowel obstruction Secondary discharge diagnosis: Crohn's Disease UTI HTN Hyponatremia Hypochloridemia Reason for admission: Partial SBO - need for IV meds and anti-emetics and correction electrolytes Pertinent studies/significant findings: none Complications: none Exam Temp Pulse Resp BP Pulse Ox 97.9 F 107 H 20 154/98 96 02/21/19 07:24 02/21/19 07:11 02/21/19 07:24 02/21/19 07:24 02/21/19 07:24 - General physical appearance well developed, well nourished, no distress - Eyes PERRL, normal ocular movement - ENT normal mucosa - Head Head exam IM: Present: atraumatic, normocephalic - Neck no masses, no bruits, trachea midline, no lymphadenopathy, no venous distension - Cardiovascular Cardiovascular exam IM: Present: irregular rhythm - Respiratory normal expansion, normal respiratory effort, clear to percussion, clear to auscultation - Abdomen Abdomen: Present: soft, non tender, bowel sounds. Absent: surgical scars Hernia: Present: none - Integumentary Present: no rash, no growths, no abnormal pigmentation - Neurologic Present: normal coordination, normal sensation - Musculoskeletal Present: normal gait, normal posture - Psychiatric Present: oriented to time, oriented to person, oriented to place, speech is normal, memory intact - Additional Findings Labs back to normal Abdominal films reviewed & show all air in colon - no A/F levels - no distended bowel Discharge Plan - Patient/Caregiver Discharge Instructions Discharge Summary: Home To continue liquids only x 24 hours then very gradual transition from low fiber diet to regular over several days Resume regular meds INCLUDING Prednisone 20 mg BID Has FU appt with Dr. Florence on 03/05 with anticipated surgery soon thereafter To call or come to ER if any repeat or further symptoms develop Take Bactrim x 1 week for documented UTI Activity: resume usual activities as tolerated Diet: Full Liquid Additional Instructions: Patient is going to be admitted to the hospital under the care of the general surgeon (Dr. Collazo). All further treatment decisions and modalities to be carried out by Dr. Collazo. Prescriptions: Sulfamethoxazole/Trimethoprim [Bactrim Ds] 1 tab PO BID #14 tab Transmission Status: Pending to [facility] - Follow up Plan Follow up with: Collin Florence MD [Physician] - Disposition: Home, Self-Care Prognosis: Good Rehab Potential: Good Overall status at discharge: patient is progressing back to baseline Pending Studies Resuscitation Status Full Code Diet Full Liquid Diet Start SatFeb 20 1344 Sodium Chloride (Sodium Chloride 0.9%) 1,000 mls @ 100 mls/hr IV .Q10H [facility] Last Admin: 02/21/19 01:36 Dose: 100 mls/hr Documented by: Infusion: 02/21/19 01:27 Dose: 100 mls/hr Documented by: Admin: 02/20/19 15:27 Dose: 100 mls/hr Documented by: KENIA Omeprazole (Prilosec) 40 mg PO ACB [facility] Last Admin: 02/21/19 07:26 Dose: 40 mg Documented by: PALMER Sodium Chloride (Saline Flush) 10 ml IV Q8 [facility] Last Admin: 02/21/19 07:24 Dose: Not Given Documented by: Admin: 02/20/19 21:40 Dose: Not Given Documented by: Admin: 02/20/19 15:11 Dose: Not Given Documented by: KENIA Sulfasalazine (Sulfasalazine) 1,000 mg PO Q6H [facility] Last Admin: 02/21/19 04:58 Dose: 1,000 mg Documented by: Admin: 02/20/19 21:40 Dose: 1,000 mg Documented by: Admin: 02/20/19 15:28 Dose: 1,000 mg Documented by: KENIA Tamsulosin HCl (Flomax) 0.4 mg PO HS [facility] Last Admin: 02/20/19 21:39 Dose: 0.4 mg Documented by: PAIGE Shift Summary 02/21/19 05:58 Shift Summary by Matthew Harris Pt has rested well tonight. He is up (I) to BR - gait stable w/o device. Voids per urinal, and reports 3x Lg loose Bm's. Pt has denied pain or nausea all shift. VS - WNL on R.A.. NS infusing to his LT A/C @ 100ml/hr. No skin issues. He is A&O x4, calm, pleasant, & cooperative. Pt is hoping to D/C to home later today. Initialized on 02/21/19 05:58 - END OF NOTE
[2019-02-21] MEDS ORDERED: METOPROLOL SUCCINATE 25 MG TAB.XL.24H PO SCH (09:00)
[2019-02-21] MEDS ORDERED: BUDESONIDE 3 MG CAP.XL.24H PO SCH (09:00)
[2019-02-21] MEDS ORDERED: ASPIRIN 81 MG TAB.CHEW PO SCH (09:00)
--- NOTE | 2019-02-21 10:21 | XRay Report ---
HISTORY: Follow-up partial small bowel obstruction FINDINGS: There is gas in both large and small intestine. There are few dilated segments of small intestine in the right mid abdomen which contain air-fluid levels. They measure up to 4.6 cm in transverse diameter. Fewer loops of dilated small intestine are seen on today's exam than on 02/20/19. No free intraperitoneal air is present. There is more gas in the colon today than there was yesterday. IMPRESSION: Mild improvement of the partial distal small bowel obstruction Interpreted and Authenticated by: Matt Shea 02/21/19
== END 2019-02-21 11:30 | disposition home or self-care (01) | DRG 386 ==
LOC: ED 10:16 → MEDSUR 14:53
PROVIDERS: ADMIT Surgery; ATTEND Surgery

== ENCOUNTER 2019-03-11 04:55 | Inpatient (IN) ==
[2019-03-09 12:42] LABS: Prothrombin Time 13.4 sec (11.9-14.5)
[2019-03-09 14:15] LABS: Basophils # (Auto) 0.02 K/mcL (0.00-0.30); Basophils % (Auto) 0.4 % (0.0-2.0); Eosinophils # (Auto) 0.03 K/mcL (0.00-0.70); Eosinophils % (Auto) 0.6 % (0.0-7.0); Granulocytes % (Auto) 82.1 % (38.0-78.0); Hematocrit 40.6 % (40.1-51.0); Lymphocytes # (Auto) 0.42 K/mcL (1.50-4.80); Mean Cell Volume 95.5 fL (80.0-100.0); Mean Platelet Volume 8.8 fL (7.4-10.4); Monocytes # (Auto) 0.37 K/mcL (0.10-0.90); Monocytes % (Auto) 7.9 % (1.0-12.0); Platelet Count 206 K/mcL (140-440); RBC 4.25 M/mcL (4.63-6.08); Red Cell Distribution Width 15.8 % (11.5-14.5); WBC 4.7 K/mcL (4.50-11.00)
[2019-03-09 14:25] LABS: ALT/SGPT 30 U/l (0-40); AST/SGOT 17 U/l (0-37); Albumin 3.8 gm/dL (3.2-5.2); Albumin/Globulin Ratio 1.4 (1.0-2.3); Alkaline Phosphatase 87 U/L (39-117); Bilirubin,Total 0.7 mg/dL (0.0-1.0); Blood Urea Nitrogen 10 mg/dl (8-23); Calcium 9.2 mg/dl (8.6-10.4); Carbon Dioxide 24 mmol/L (22-30); Chloride 98 mmol/L (96-108); Globulin 2.8 gm/dL (2.2-3.7); Glomerular Filtration Rate 73; Glucose 125 mg/dL (70-105)
[~2019-03-11 04:55] MED LIST: SCOPOLAMINE 1 PATCH PATCH TOPICAL PRN
[2019-03-11] MEDS ORDERED: IPRATROPIUM/ALBUTEROL 3 ML AMPUL.NEB NEB PRN ×2 (05:00→12:02)
[2019-03-11] MEDS ORDERED: metroNIDAZOLE 500 MG/100 ML BAG IV SCH (06:00)
[2019-03-11] MEDS ORDERED: methylPREDNISolone SOD SUCC 125 MG/2 ML VIAL IV SCH (06:00)
[2019-03-11] MEDS ORDERED: LEVOFLOXACIN 750 MG/150 ML BAG IV SCH (06:00)
[2019-03-11] MEDS ORDERED: LIDOCAINE HCL/PF 100 MG/5 ML SYRINGE IV ONE (09:30)
[2019-03-11] MEDS ORDERED: MIDAZOLAM 2 MG/2 ML VIAL IV ONE (09:30)
[2019-03-11] MEDS ORDERED: ESMOLOL 100 MG/10 ML VIAL IV ONE (09:30)
[2019-03-11] MEDS ORDERED: HYDROmorphone 2 MG/ML VIAL IV ONE (09:30)
[2019-03-11] MEDS ORDERED: ONDANSETRON 4 MG/2 ML VIAL IV ONE (09:30)
[2019-03-11] MEDS ORDERED: KETAMINE 100 MG/ML ML IV ONE (09:30)
[2019-03-11] MEDS ORDERED: GLYCOPYRROLATE 0.2 MG/ML VIAL IV ONE (09:30)
[2019-03-11] MEDS ORDERED: ROPIVACAINE HCL/PF 30 ML VIAL IJ ONE (09:30)
[2019-03-11] MEDS ORDERED: ROCURONIUM 10 MG/ML ML IV ONE (09:30)
[2019-03-11] MEDS ORDERED: PHENYLEPHRINE 10 MG/ML VIAL IV ONE (09:30)
[2019-03-11] MEDS ORDERED: PROPOFOL 200 MG/20 ML VIAL IV ONE (09:30)
[2019-03-11] MEDS ORDERED: DEXAMETHASONE 10 MG/ML VIAL IV ONE (09:30)
[2019-03-11] MEDS ORDERED: VERAPAMIL 2.5 MG/ML VIAL IV ONE (09:30)
--- NOTE | 2019-03-11 12:00 | Brief Operative Note ---
Date of procedure: 03/11/19 Pre-op diagnosis: terminal ileal stricture Post-op diagnosis: other (ICV STRICTURE AND DISTAL ILEAL STENOSIS;CROHNS DISEASE) Procedure: CECAL AND TERMINAL ILEUM RESECTION Grafts/Implants: No Anesthesia: GETA Findings: HARD MASS OF ILEOCECAL VALVE THICKENED STENOTIC TERMINAL ILEUM; THICKENED DISTAL ILEOCECAL MESENTERY Complications: none Surgeon: Collin Florence Estimated blood loss (cc): 50 Specimens Removed/Pathology: other (CECUM AND TERMINAL ILEUM) Condition: stable Disposition: PACU
[2019-03-11] MEDS ORDERED: NALOXONE HCL 0.4 MG/ML VIAL IV PRN (12:02)
[2019-03-11] MEDS ORDERED: ACETAMINOPHEN 1,000 MG/100 ML BOTTLE IV ONE (12:02)
[2019-03-11] MEDS ORDERED: MEPERIDINE 25 MG/ML SYRINGE IV PRN (12:02)
[2019-03-11] MEDS ORDERED: ATROPINE SULFATE 0.4 MG/ML VIAL IV PRN (12:02)
[2019-03-11] MEDS ORDERED: diphenhydrAMINE 50 MG/ML VIAL IV PRN (12:02)
[2019-03-11] MEDS ORDERED: METHOCARBAMOL 1,000 MG/10 ML VIAL IV PRN (12:02)
[2019-03-11] MEDS ORDERED: fentaNYL 100 MCG/2 ML VIAL IV PRN (12:02)
[2019-03-11] MEDS ORDERED: ONDANSETRON 4 MG/2 ML VIAL IV PRN ×2 (12:02→12:08)
[2019-03-11] MEDS ORDERED: ePHEDrine 50 MG/ML AMPUL IV PRN (12:02)
[2019-03-11] MEDS ORDERED: ACETAMINOPHEN 1,000 MG/100 ML BOTTLE IV PRN (12:08)
[2019-03-11] MEDS ORDERED: LACTATED RINGERS 1,000 ML IV SCH (12:15)
[2019-03-11] MEDS: LACTATED RINGERS 1,000 ML IV SCH ×2 (12:57→19:11)
[2019-03-11] MEDS: metroNIDAZOLE 500 MG/100 ML BAG IV SCH ×2 (13:12→19:12)
[2019-03-11] MEDS: 0.9 % SODIUM CHLORIDE 10 ML SYRINGE IV SCH ×2 (13:13→20:55)
[2019-03-11] MEDS: HYDROmorphone 2 MG/ML VIAL IV PRN ×3 (15:25→22:40)
[2019-03-11] MEDS: ACETAMINOPHEN 1,000 MG/100 ML BOTTLE IV SCH ×2 (17:42→23:28)
[2019-03-11] MEDS: METOCLOPRAMIDE 10 MG/2 ML VIAL IV SCH ×2 (17:42→23:25)
[2019-03-11] MEDS ORDERED: METOCLOPRAMIDE 10 MG/2 ML VIAL IV SCH (18:00)
[2019-03-12] MEDS: metroNIDAZOLE 500 MG/100 ML BAG IV SCH ×2 (00:09→05:43)
[2019-03-12] MEDS: ACETAMINOPHEN 1,000 MG/100 ML BOTTLE IV SCH ×3 (05:02→17:51)
[2019-03-12] MEDS: METOCLOPRAMIDE 10 MG/2 ML VIAL IV SCH ×3 (05:03→17:50)
[2019-03-12] MEDS: LACTATED RINGERS 1,000 ML IV SCH ×3 (05:09→22:58)
[2019-03-12] MEDS: HYDROmorphone 2 MG/ML VIAL IV PRN ×6 (05:41→23:04)
[2019-03-12] MEDS: 0.9 % SODIUM CHLORIDE 10 ML SYRINGE IV SCH ×3 (06:01→21:15)
[2019-03-12] MEDS: LEVOFLOXACIN 750 MG/150 ML BAG IV SCH (08:52)
[2019-03-12 10:07] LABS: Basophils # (Auto) 0 K/mcL (0.00-0.30); Basophils % (Auto) 0 % (0.0-2.0); Eosinophils # (Auto) 0.17 K/mcL (0.00-0.70); Eosinophils % (Auto) 2.7 % (0.0-7.0); Granulocytes % (Auto) 77.8 % (38.0-78.0); Hematocrit 35.2 % (40.1-51.0); Hemoglobin 11.4 g/dL (13.7-17.5); Lymphocytes # (Auto) 0.59 K/mcL (1.50-4.80); Lymphocytes % (Auto) 9.5 % (15.5-49.0); Mean Cell Volume 94.6 fL (80.0-100.0); Mean Corpuscular HGB Conc 32.4 g/dL (31.0-36.0); Mean Platelet Volume 9.1 fL (7.4-10.4); Monocytes # (Auto) 0.62 K/mcL (0.10-0.90); Platelet Count 161 K/mcL (140-440); RBC 3.72 M/mcL (4.63-6.08); Red Cell Distribution Width 15.4 % (11.5-14.5); WBC 6.2 K/mcL (4.50-11.00)
[2019-03-12 10:28] LABS: ALT/SGPT 19 U/l (0-40); AST/SGOT 12 U/l (0-37); Albumin 3.1 gm/dL (3.2-5.2); Albumin/Globulin Ratio 1.3 (1.0-2.3); Alkaline Phosphatase 62 U/L (39-117); Bilirubin,Direct < 0.2 mg/dL (0.0-0.3); Bilirubin,Total 0.6 mg/dL (0.0-1.0); Blood Urea Nitrogen 11 mg/dl (8-23); Calcium 8.5 mg/dl (8.6-10.4); Carbon Dioxide 22 mmol/L (22-30); Chloride 100 mmol/L (96-108); Globulin 2.3 gm/dL (2.2-3.7); Glomerular Filtration Rate 83; Glucose 104 mg/dL (70-105); Lactate Dehydrogenase 192 U/L (94-250); Phosphorous 3.7 mg/dL (2.7-4.5); Triglycerides 103 mg/dl (<150); Uric Acid 6.6 mg/dL (2.5-8.0)
--- NOTE | 2019-03-12 11:45 | General Surgery Progress Note ---
Subjective Patient reports: feels better, still having pain, no flatus, no bowel movement, afebrile Narrative: Note initiated : 03/12/19 at 11:44 am Service Date, if different from initiated Date: [] Patient: Gavin Andrade 78 y/o M admitted on 03/11/19 for Right Colectomy and Terminal Ileum Resection. Chief Complaint: [patient is feeling well except for abdominal pain. He denies nausea. He does not have any chest discomfort or shortness of breath.611, hemoglobin 11.4, inpatient panel normal] Objective Temp Pulse Resp BP Pulse Ox 97.6 F 93 H 12 107/66 94 03/12/19 07:45 03/12/19 07:59 03/12/19 07:45 03/12/19 07:45 03/12/19 07:45 - Additional Data Intake & Output - Last 24 hours: Intake & Output 03/10/19 03/11/19 03/12/19 03/13/19 05:59 05:59 05:59 05:59 Intake Total 5104 150 Output Total 875 Balance 4229 150 Weight 223 lb 223 lb 211 lb 3.2 oz - General physical appearance well developed, well nourished, moderate pain - Eyes PERRL, normal ocular movement - ENT normal pinna, normal nares, normal mucosa, no hearing loss, no congestion - Neck no masses, no bruits, trachea midline, no lymphadenopathy, no venous distension - Respiratory normal expansion, normal respiratory effort, clear to auscultation - Cardiovascular Cardiovascular exam: Present: normal rate and rhythm, RRR, +S1, +S2. Absent: JVD, tachycardia - Abdomen distended (mild distention; good active bowel sounds. Incision looks good) - Integumentary no rash, no growths, no abnormal pigmentation - Neurologic normal coordination, normal sensation - Musculoskeletal normal gait, normal posture - Psychiatric oriented to time, oriented to person, oriented to place, speech is normal, memory intact - Labs 03/12/19 06:13 03/12/19 06:13 Diabetes panel 03/12/19 Range/Units 06:13 Sodium 135 (133-145) mmol/L Potassium 4.1 (3.3-5.1) mmol/L Chloride 100 (96-108) mmol/L Carbon Dioxide 22 (22-30) mmol/L BUN 11 (8-23) mg/dl Creatinine 0.9 (0.7-1.2) mg/dl Glucose 104 (70-105) mg/dL Calcium 8.5 L (8.6-10.4) mg/dl AST 12 (0-37) U/l ALT 19 (0-40) U/l Alkaline Phosphatase 62 (39-117) U/L Total Protein 5.4 L (5.9-8.4) gm/dL Albumin 3.1 L (3.2-5.2) gm/dL Triglycerides 103 (<150) mg/dl Calcium panel 03/12/19 Range/Units 06:13 Calcium 8.5 L (8.6-10.4) mg/dl Phosphorus 3.7 (2.7-4.5) mg/dL Albumin 3.1 L (3.2-5.2) gm/dL Pituitary panel 03/12/19 Range/Units 06:13 Sodium 135 (133-145) mmol/L Potassium 4.1 (3.3-5.1) mmol/L Chloride 100 (96-108) mmol/L Carbon Dioxide 22 (22-30) mmol/L BUN 11 (8-23) mg/dl Creatinine 0.9 (0.7-1.2) mg/dl Glucose 104 (70-105) mg/dL Calcium 8.5 L (8.6-10.4) mg/dl Adrenal panel 03/12/19 Range/Units 06:13 Sodium 135 (133-145) mmol/L Potassium 4.1 (3.3-5.1) mmol/L Chloride 100 (96-108) mmol/L Carbon Dioxide 22 (22-30) mmol/L BUN 11 (8-23) mg/dl Creatinine 0.9 (0.7-1.2) mg/dl Glucose 104 (70-105) mg/dL Calcium 8.5 L (8.6-10.4) mg/dl Total Bilirubin 0.6 (0.0-1.0) mg/dL AST 12 (0-37) U/l ALT 19 (0-40) U/l Alkaline Phosphatase 62 (39-117) U/L Total Protein 5.4 L (5.9-8.4) gm/dL Albumin 3.1 L (3.2-5.2) gm/dL Assessment and Plan (1) Small bowel stricture Status: Acute Assessment and plan: continue on present treatment Solu-Medrol 62 mg IV every 12 hours. Discontinue Araiza catheter. Early ambulation Current Visit: Yes (2) Crohn's disease Status: Chronic Current Visit: No (3) Hay fever Status: Chronic Current Visit: No (4) ALAN (obstructive sleep apnea) Status: Chronic Current Visit: No - Time Spent With Patient Total time spent is greater than 50% in coordination of care (as documented) at patient's floor/unit and/or counseling patient:
[2019-03-12] MEDS: TAMSULOSIN 0.4 MG CAPSULE PO SCH (21:10)
[2019-03-12] MEDS: methylPREDNISolone SOD SUCC 125 MG/2 ML VIAL IV SCH (21:11)
[2019-03-13] MEDS: METOCLOPRAMIDE 10 MG/2 ML VIAL IV SCH ×4 (00:21→18:01)
[2019-03-13] MEDS: ACETAMINOPHEN 1,000 MG/100 ML BOTTLE IV SCH ×4 (00:22→18:01)
[2019-03-13] MEDS: HYDROmorphone 2 MG/ML VIAL IV PRN ×4 (04:18→21:05)
[2019-03-13] MEDS: 0.9 % SODIUM CHLORIDE 10 ML SYRINGE IV SCH ×3 (06:38→20:07)
[2019-03-13 06:56] LABS: Basophils # (Auto) 0.01 K/mcL (0.00-0.30); Basophils % (Auto) 0.2 % (0.0-2.0); Eosinophils # (Auto) 0 K/mcL (0.00-0.70); Eosinophils % (Auto) 0 % (0.0-7.0); Granulocytes % (Auto) 89.1 % (38.0-78.0); Hematocrit 38.5 % (40.1-51.0); Hemoglobin 12.4 g/dL (13.7-17.5); Lymphocytes # (Auto) 0.33 K/mcL (1.50-4.80); Lymphocytes % (Auto) 5.9 % (15.5-49.0); Mean Cell Volume 95.1 fL (80.0-100.0); Mean Corpuscular HGB Conc 32.2 g/dL (31.0-36.0); Mean Platelet Volume 8.5 fL (7.4-10.4); Monocytes # (Auto) 0.27 K/mcL (0.10-0.90); Monocytes % (Auto) 4.8 % (1.0-12.0); Platelet Count 155 K/mcL (140-440); RBC 4.05 M/mcL (4.63-6.08); Red Cell Distribution Width 15.8 % (11.5-14.5); WBC 5.6 K/mcL (4.50-11.00)
[2019-03-13 07:50] LABS: ALT/SGPT 23 U/l (0-40); AST/SGOT 17 U/l (0-37); Albumin 3.5 gm/dL (3.2-5.2); Albumin/Globulin Ratio 1.3 (1.0-2.3); Alkaline Phosphatase 68 U/L (39-117); Bilirubin,Direct < 0.2 mg/dL (0.0-0.3); Bilirubin,Total 0.6 mg/dL (0.0-1.0); Blood Urea Nitrogen 8 mg/dl (8-23); Calcium 8.7 mg/dl (8.6-10.4); Carbon Dioxide 22 mmol/L (22-30); Chloride 100 mmol/L (96-108); Globulin 2.6 gm/dL (2.2-3.7); Glomerular Filtration Rate 87; Glucose 140 mg/dL (70-105); Lactate Dehydrogenase 227 U/L (94-250); Phosphorous 3.1 mg/dL (2.7-4.5); Triglycerides 115 mg/dl (<150); Uric Acid 6.5 mg/dL (2.5-8.0)
[2019-03-13] MEDS: LACTATED RINGERS 1,000 ML IV SCH ×4 (08:15→21:15)
[2019-03-13] MEDS: TERAZOSIN 5 MG CAPSULE PO SCH (08:22)
[2019-03-13] MEDS: methylPREDNISolone SOD SUCC 125 MG/2 ML VIAL IV SCH ×2 (08:22→19:49)
[2019-03-13] MEDS: LEVOFLOXACIN 750 MG/150 ML BAG IV SCH (08:22)
--- NOTE | 2019-03-13 16:03 | General Surgery Progress Note ---
Subjective Patient reports: feels better, pain is less, voiding w/o difficulty, no flatus, no bowel movement, afebrile Narrative: Note initiated : 03/13/19 at 4:01 pm Service Date, if different from initiated Date: [] Patient: Gavin Andrade 78 y/o M admitted on 03/11/19 for Right Colectomy and Terminal Ileum Resection. Chief Complaint: [Patient is doing well. His pain is better controlled. He denies nausea. He's not had flatus so fAr. White blood count is 5.6, hemoglobin 12.4, hematocrit 30.5, inpatient panel is totally normal. He has no difficulty with his incision.] Objective Temp Pulse Resp BP Pulse Ox 97.6 F 112 H 16 155/85 94 03/13/19 12:00 03/13/19 12:00 03/13/19 12:00 03/13/19 12:00 03/13/19 12:00 - Additional Data Intake & Output - Last 24 hours: Intake & Output 03/11/19 03/12/19 03/13/19 03/14/19 05:59 05:59 05:59 05:59 Intake Total 5104 2790 1500 Output Total 875 775 500 Balance 4229 2015 1000 Weight 223 lb 211 lb 3.2 oz 215 lb 3.2 oz - General physical appearance well developed, well nourished, no distress - Eyes PERRL, normal ocular movement - ENT normal pinna, normal nares, normal mucosa, no hearing loss, no congestion - Neck no masses, no bruits, trachea midline, no lymphadenopathy, no venous distension - Respiratory normal expansion, normal respiratory effort, clear to auscultation - Cardiovascular Cardiovascular exam: Present: normal rate and rhythm, RRR, +S1, +S2. Absent: bradycardia, JVD, tachycardia - Abdomen surgical scars (incision looks good), distended (abdomen is mildly distended; good active bowel sounds;) - Integumentary no rash, no growths, no abnormal pigmentation - Neurologic normal coordination, normal sensation - Musculoskeletal normal gait, normal posture - Psychiatric oriented to time, oriented to person, oriented to place, speech is normal, memory intact - Labs 03/13/19 05:43 03/13/19 05:43 Diabetes panel 03/13/19 Range/Units 05:43 Sodium 135 (133-145) mmol/L Potassium 4.4 (3.3-5.1) mmol/L Chloride 100 (96-108) mmol/L Carbon Dioxide 22 (22-30) mmol/L BUN 8 (8-23) mg/dl Creatinine 0.8 (0.7-1.2) mg/dl Glucose 140 H (70-105) mg/dL Calcium 8.7 (8.6-10.4) mg/dl AST 17 (0-37) U/l ALT 23 (0-40) U/l Alkaline Phosphatase 68 (39-117) U/L Total Protein 6.1 (5.9-8.4) gm/dL Albumin 3.5 (3.2-5.2) gm/dL Triglycerides 115 (<150) mg/dl Calcium panel 03/13/19 Range/Units 05:43 Calcium 8.7 (8.6-10.4) mg/dl Phosphorus 3.1 (2.7-4.5) mg/dL Albumin 3.5 (3.2-5.2) gm/dL Pituitary panel 03/13/19 Range/Units 05:43 Sodium 135 (133-145) mmol/L Potassium 4.4 (3.3-5.1) mmol/L Chloride 100 (96-108) mmol/L Carbon Dioxide 22 (22-30) mmol/L BUN 8 (8-23) mg/dl Creatinine 0.8 (0.7-1.2) mg/dl Glucose 140 H (70-105) mg/dL Calcium 8.7 (8.6-10.4) mg/dl Adrenal panel 03/13/19 Range/Units 05:43 Sodium 135 (133-145) mmol/L Potassium 4.4 (3.3-5.1) mmol/L Chloride 100 (96-108) mmol/L Carbon Dioxide 22 (22-30) mmol/L BUN 8 (8-23) mg/dl Creatinine 0.8 (0.7-1.2) mg/dl Glucose 140 H (70-105) mg/dL Calcium 8.7 (8.6-10.4) mg/dl Total Bilirubin 0.6 (0.0-1.0) mg/dL AST 17 (0-37) U/l ALT 23 (0-40) U/l Alkaline Phosphatase 68 (39-117) U/L Total Protein 6.1 (5.9-8.4) gm/dL Albumin 3.5 (3.2-5.2) gm/dL Assessment and Plan (1) Small bowel stricture Status: Acute Assessment and plan: continue on present treatment Solu-Medrol 62 mg IV every 12 hours. Clear liquid diet Early ambulation Decrease IV to 50 cc/h Current Visit: Yes (2) Crohn's disease Status: Chronic Current Visit: No (3) Hay fever Status: Chronic Current Visit: No (4) ALAN (obstructive sleep apnea) Status: Chronic Current Visit: No - Time Spent With Patient Total time spent is greater than 50% in coordination of care (as documented) at patient's floor/unit and/or counseling patient:
[2019-03-13] MEDS: TAMSULOSIN 0.4 MG CAPSULE PO SCH (19:48)
[2019-03-14] MEDS: ACETAMINOPHEN 1,000 MG/100 ML BOTTLE IV SCH ×5 (00:03→23:05)
[2019-03-14] MEDS: METOCLOPRAMIDE 10 MG/2 ML VIAL IV SCH ×5 (00:04→23:05)
[2019-03-14] MEDS: TERAZOSIN 5 MG CAPSULE PO SCH ×2 (04:56→15:59)
[2019-03-14] MEDS: 0.9 % SODIUM CHLORIDE 10 ML SYRINGE IV SCH ×3 (06:06→21:16)
[2019-03-14 06:26] LABS: Basophils # (Auto) 0.01 K/mcL (0.00-0.30); Basophils % (Auto) 0.2 % (0.0-2.0); Eosinophils # (Auto) 0 K/mcL (0.00-0.70); Eosinophils % (Auto) 0 % (0.0-7.0); Granulocytes % (Auto) 85.3 % (38.0-78.0); Hematocrit 36.5 % (40.1-51.0); Hemoglobin 11.7 g/dL (13.7-17.5); Lymphocytes # (Auto) 0.38 K/mcL (1.50-4.80); Lymphocytes % (Auto) 6.8 % (15.5-49.0); Mean Cell Volume 94.1 fL (80.0-100.0); Mean Corpuscular HGB Conc 32.1 g/dL (31.0-36.0); Mean Platelet Volume 8.5 fL (7.4-10.4); Monocytes # (Auto) 0.43 K/mcL (0.10-0.90); Monocytes % (Auto) 7.7 % (1.0-12.0); Platelet Count 151 K/mcL (140-440); RBC 3.88 M/mcL (4.63-6.08); Red Cell Distribution Width 15.8 % (11.5-14.5); WBC 5.6 K/mcL (4.50-11.00)
[2019-03-14 07:01] LABS: ALT/SGPT 20 U/l (0-40); AST/SGOT 17 U/l (0-37); Albumin 3.1 gm/dL (3.2-5.2); Albumin/Globulin Ratio 1.2 (1.0-2.3); Alkaline Phosphatase 60 U/L (39-117); Bilirubin,Direct < 0.2 mg/dL (0.0-0.3); Bilirubin,Total 0.7 mg/dL (0.0-1.0); Blood Urea Nitrogen 8 mg/dl (8-23); Calcium 8.5 mg/dl (8.6-10.4); Carbon Dioxide 21 mmol/L (22-30); Chloride 103 mmol/L (96-108); Globulin 2.6 gm/dL (2.2-3.7); Glomerular Filtration Rate 87; Glucose 143 mg/dL (70-105); Lactate Dehydrogenase 232 U/L (94-250); Phosphorous 2.4 mg/dL (2.7-4.5); Triglycerides 121 mg/dl (<150)
[2019-03-14] MEDS: methylPREDNISolone SOD SUCC 125 MG/2 ML VIAL IV SCH ×2 (09:39→21:15)
[2019-03-14] MEDS: LEVOFLOXACIN 750 MG/150 ML BAG IV SCH ×2 (09:39→12:00)
[2019-03-14] MEDS: HYDROmorphone 2 MG/ML VIAL IV PRN (09:41)
[2019-03-14] MEDS ORDERED: oxyCODONE/APAP 10/325MG TABLET PO PRN (11:23)
[2019-03-14] MEDS ORDERED: METOPROLOL TARTRATE 5 MG/5 ML VIAL IV PRN (13:12)
[2019-03-14] MEDS: LEVOFLOXACIN 750 MG TABLET PO SCH (13:15)
--- NOTE | 2019-03-14 15:06 | General Surgery Progress Note ---
Subjective Patient reports: feels better, pain is less, flatus, bowel movement, afebrile Narrative: Note initiated : 03/14/19 at 1:53 pm Service Date, if different from initiated Date: [] Patient: Gavin Andrade 78 y/o M admitted on 03/11/19 for Right Colectomy and Terminal Ileum Resection. Chief Complaint: [Patient is doing well. She had flatus and multiple bowel movements. He is afebrile. He denies abdominal distention. White blood count 6, hemoglobin 11.7, hematocrit 30 6..] Objective Temp Pulse Resp BP Pulse Ox 98.1 F 108 H 14 156/91 98 03/14/19 12:00 03/14/19 12:00 03/14/19 12:00 03/14/19 12:00 03/14/19 12:00 - Additional Data Intake & Output - Last 24 hours: Intake & Output 03/12/19 03/13/19 03/14/19 03/15/19 05:59 05:59 05:59 05:59 Intake Total 5104 2790 2850 760 Output Total 414 124 3866 100 Balance 4229 2014 1600 660 Weight 211 lb 3.2 oz 215 lb 3.2 oz 224 lb - General physical appearance well developed, well nourished, no distress - Eyes PERRL, normal ocular movement - ENT normal pinna, normal nares, normal mucosa, no hearing loss, no congestion - Neck no masses, no bruits, trachea midline, no lymphadenopathy, no venous distension - Respiratory normal expansion, normal respiratory effort, clear to auscultation - Cardiovascular Cardiovascular exam: Present: normal rate and rhythm, RRR, +S1, +S2. Absent: bradycardia, tachycardia - Abdomen tender (minimal incision tenderness), bowel sounds (present), surgical scars (none), masses (none), distended (no distention) - Integumentary no rash, no growths, no abnormal pigmentation - Neurologic normal coordination, normal sensation - Musculoskeletal normal gait, normal posture - Psychiatric oriented to time, oriented to person, oriented to place, speech is normal, memory intact - Labs 03/14/19 05:32 03/14/19 05:32 Diabetes panel 03/14/19 Range/Units 05:32 Sodium 138 (133-145) mmol/L Potassium 4.0 (3.3-5.1) mmol/L Chloride 103 (96-108) mmol/L Carbon Dioxide 21 L (22-30) mmol/L BUN 8 (8-23) mg/dl Creatinine 0.8 (0.7-1.2) mg/dl Glucose 143 H (70-105) mg/dL Calcium 8.5 L (8.6-10.4) mg/dl AST 17 (0-37) U/l ALT 20 (0-40) U/l Alkaline Phosphatase 60 (39-117) U/L Total Protein 5.7 L (5.9-8.4) gm/dL Albumin 3.1 L (3.2-5.2) gm/dL Triglycerides 121 (<150) mg/dl Calcium panel 03/14/19 Range/Units 05:32 Calcium 8.5 L (8.6-10.4) mg/dl Phosphorus 2.4 L (2.7-4.5) mg/dL Albumin 3.1 L (3.2-5.2) gm/dL Pituitary panel 03/14/19 Range/Units 05:32 Sodium 138 (133-145) mmol/L Potassium 4.0 (3.3-5.1) mmol/L Chloride 103 (96-108) mmol/L Carbon Dioxide 21 L (22-30) mmol/L BUN 8 (8-23) mg/dl Creatinine 0.8 (0.7-1.2) mg/dl Glucose 143 H (70-105) mg/dL Calcium 8.5 L (8.6-10.4) mg/dl Adrenal panel 03/14/19 Range/Units 05:32 Sodium 138 (133-145) mmol/L Potassium 4.0 (3.3-5.1) mmol/L Chloride 103 (96-108) mmol/L Carbon Dioxide 21 L (22-30) mmol/L BUN 8 (8-23) mg/dl Creatinine 0.8 (0.7-1.2) mg/dl Glucose 143 H (70-105) mg/dL Calcium 8.5 L (8.6-10.4) mg/dl Total Bilirubin 0.7 (0.0-1.0) mg/dL AST 17 (0-37) U/l ALT 20 (0-40) U/l Alkaline Phosphatase 60 (39-117) U/L Total Protein 5.7 L (5.9-8.4) gm/dL Albumin 3.1 L (3.2-5.2) gm/dL Assessment and Plan (1) Small bowel stricture Status: Acute Assessment and plan: continue on present treatment Solu-Medrol 62 mg IV every 12 hours. GI soft diet Early ambulation Decrease IV to 50 cc/h Current Visit: Yes (2) Crohn's disease Status: Chronic Current Visit: No (3) Hay fever Status: Chronic Current Visit: No (4) ALAN (obstructive sleep apnea) Status: Chronic Current Visit: No - Time Spent With Patient Total time spent is greater than 50% in coordination of care (as documented) at patient's floor/unit and/or counseling patient:
[2019-03-14] MEDS: LACTATED RINGERS 1,000 ML IV SCH (16:02)
[2019-03-14] MEDS: TAMSULOSIN 0.4 MG CAPSULE PO SCH (20:30)
[2019-03-15] MEDS: METOCLOPRAMIDE 10 MG/2 ML VIAL IV SCH ×2 (04:44→16:02)
[2019-03-15] MEDS: ACETAMINOPHEN 1,000 MG/100 ML BOTTLE IV SCH ×2 (04:44→16:02)
[2019-03-15] MEDS: 0.9 % SODIUM CHLORIDE 10 ML SYRINGE IV SCH ×2 (04:45→16:02)
[2019-03-15] MEDS: TERAZOSIN 5 MG CAPSULE PO SCH (08:33)
[2019-03-15] MEDS: LEVOFLOXACIN 750 MG TABLET PO SCH (08:33)
[2019-03-15] MEDS: LACTATED RINGERS 1,000 ML IV SCH (08:34)
[2019-03-15] MEDS: methylPREDNISolone SOD SUCC 125 MG/2 ML VIAL IV SCH (09:14)
--- NOTE | 2019-03-15 14:23 | Discharge Summary ---
Providers - Providers Patient information: Note initiated : 03/15/19 at 2:20 pm Service Date, if different from initiated Date: [] Patient: Gavin Andrade 78 y/o M admitted on 03/11/19 for Right Colectomy and Terminal Ileum Resection. Chief Complaint: [] Date of admission: 03/11/19 Discharge date: 03/15/19 Attending physician: Collin Florence Hospitalization Hospital Course: 78-year-old male was admitted status post possible right colon resection with resection for terminal ileitis with obstruction at the The ileocecal valve. The patient had an uneventful surgery. There was a hot mass of the ileocecal valve with near complete obstruction. He did well postoperatively.. He was able to tolerate liquids on the second postoperative day and was given by the third postop. He has had multiple bowel movements and is tolerating a soft diet at this time. He has no abdominal complaints. Pathology. The operative specimen is still not available in the electronic record At this time. Discharge diagnosis: high-grade obstruction at ileocecal valve Secondary discharge diagnosis: Terminal ileitis Reason for admission: recurrent small bowel obstruction Procedures: Right colectomy with terminal ileal resection Pertinent studies/significant findings: None Complications: 9 Exam Temp Pulse Resp BP Pulse Ox 98.8 F 100 H 16 143/91 100 03/15/19 03:35 03/15/19 03:35 03/15/19 03:35 03/15/19 03:35 03/15/19 03:35 - General physical appearance well developed, well nourished, no distress - Eyes PERRL, normal ocular movement - ENT normal pinna, normal nares, normal mucosa, no hearing loss, no congestion - Head Head exam IM: Present: atraumatic, normocephalic - Neck no masses, no bruits, trachea midline, no lymphadenopathy, no venous distension - Cardiovascular Cardiovascular exam IM: Present: normal rate and rhythm - Respiratory normal expansion, normal respiratory effort, clear to percussion, clear to auscultation - Abdomen Abdomen: Present: soft, tender (mild incisional tenderness), bowel sounds (. Good active bowel sounds), distended (. Mild distention but soft) Hernia: Present: none - Genitourinary Present: normal penis with no external lesions - Integumentary Present: no rash, no growths, no abnormal pigmentation - Neurologic Present: normal coordination, normal sensation - Musculoskeletal Present: normal gait, normal posture - Psychiatric Present: oriented to time, oriented to person, oriented to place, speech is normal, memory intact Discharge Plan - Patient/Caregiver Discharge Instructions Activity: increase activity as tolerated Diet: Regular Diet (advance diet as tolerated) - Follow up Plan Disposition: Home, Self-Care Prognosis: Good Rehab Potential: Good I certify that the patient requires SNF services.: No Overall status at discharge: patient is progressing back to baseline Pending Studies Resuscitation Status Full Code Diet GI Soft/Transitional Start Sat Mar 14 1124 Hydromorphone HCl (Dilaudid) 1 mg IV Q2HP PRN; Protocol PRN Reason: Per Pain Protocol Last Admin: 03/14/19 09:41 Dose: 1 mg Documented by: Admin: 03/13/19 21:05 Dose: 1 mg Documented by: Admin: 03/13/19 13:19 Dose: 1 mg Documented by: Admin: 03/13/19 06:38 Dose: 1 mg Documented by: Admin: 03/13/19 04:18 Dose: 1 mg Documented by: Admin: 03/12/19 23:04 Dose: 1 mg Documented by: Admin: 03/12/19 21:11 Dose: 1 mg Documented by: Admin: 03/12/19 17:57 Dose: 1 mg Documented by: Admin: 03/12/19 14:14 Dose: 1 mg Documented by: Admin: 03/12/19 11:22 Dose: 1 mg Documented by: Admin: 03/12/19 05:41 Dose: 1 mg Documented by: Admin: 03/11/19 22:40 Dose: 1 mg Documented by: Admin: 03/11/19 17:51 Dose: 1 mg Documented by: Admin: 03/11/19 15:25 Dose: 0.5 mg Documented by: BRINDA Acetaminophen (Ofirmev) 1,000 mg in 100 mls @ 200 mls/hr IV Q6H [facility]; Protocol Last Admin: 03/15/19 04:44 Dose: Not Given Documented by: Admin: 03/14/19 23:05 Dose: Not Given Documented by: Admin: 03/14/19 17:00 Dose: Not Given Documented by: Infusion: 03/14/19 16:59 Dose: 0 mls/hr Documented by: Admin: 03/14/19 16:00 Dose: Not Given Documented by: Admin: 03/14/19 05:39 Dose: 200 mls/hr Documented by: Infusion: 03/14/19 00:33 Dose: 200 mls/hr Documented by: Admin: 03/14/19 00:03 Dose: 200 mls/hr Documented by: Infusion: 03/13/19 18:31 Dose: 200 mls/hr Documented by: Admin: 03/13/19 18:01 Dose: 200 mls/hr Documented by: Infusion: 03/13/19 12:35 Dose: 0 mls/hr Documented by: [email or web address] Admin: 03/13/19 12:05 Dose: 200 mls/hr Documented by: [email or web address] Infusion: 03/13/19 06:08 Dose: 0 mls/hr Documented by: [email or web address] Admin: 03/13/19 05:38 Dose: 200 mls/hr Documented by: Infusion: 03/13/19 00:52 Dose: 200 mls/hr Documented by: Admin: 03/13/19 00:22 Dose: 200 mls/hr Documented by: Infusion: 03/12/19 18:21 Dose: 200 mls/hr Documented by: Admin: 03/12/19 17:51 Dose: 200 mls/hr Documented by: [email or web address] Infusion: 03/12/19 12:20 Dose: 0 mls/hr Documented by: [email or web address] Admin: 03/12/19 11:47 Dose: 200 mls/hr Documented by: [email or web address] Infusion: 03/12/19 05:40 Dose: 0 mls/hr Documented by: [email or web address] Admin: 03/12/19 05:02 Dose: 200 mls/hr Documented by: Infusion: 03/11/19 23:58 Dose: 200 mls/hr Documented by: Admin: 03/11/19 23:28 Dose: 200 mls/hr Documented by: Infusion: 03/11/19 18:12 Dose: 200 mls/hr Documented by: Admin: 03/11/19 17:42 Dose: 200 mls/hr Documented by: BRINDA Lactated Ringer's (Lactated Ringers) 1,000 mls @ 50 mls/hr IV .Q20H [facility] Last Admin: 03/15/19 08:34 Dose: Not Given Documented by: Admin: 03/14/19 16:02 Dose: Not Given Documented by: Admin: 03/13/19 21:15 Dose: 50 mls/hr Documented by: Admin: 03/13/19 16:48 Dose: Not Given Documented by: BRITTANIE Levofloxacin (Levaquin) 750 mg PO DAILY [facility]; Protocol Last Admin: 03/15/19 08:33 Dose: 750 mg Documented by: Admin: 03/14/19 13:15 Dose: 750 mg Documented by: KENIA Methylprednisolone Sodium Succinate (Solu-Medrol) 62.5 mg IV Q12 [facility] Last Admin: 03/15/19 09:14 Dose: Not Given Documented by: Admin: 03/14/19 21:15 Dose: Not Given Documented by: Admin: 03/14/19 09:39 Dose: 62.5 mg Documented by: Admin: 03/13/19 19:49 Dose: 62.5 mg Documented by: Admin: 03/13/19 08:22 Dose: 62.5 mg Documented by: Admin: 03/12/19 21:11 Dose: 62.5 mg Documented by: PAIGE Metoclopramide HCl (Reglan) 10 mg IV Q6 [facility] Last Admin: 03/15/19 04:44 Dose: Not Given Documented by: Admin: 03/14/19 23:05 Dose: Not Given Documented by: Admin: 03/14/19 17:00 Dose: Not Given Documented by: Admin: 03/14/19 16:02 Dose: Not Given Documented by: Admin: 03/14/19 05:39 Dose: 10 mg Documented by: Admin: 03/14/19 00:04 Dose: 10 mg Documented by: Admin: 03/13/19 18:01 Dose: 10 mg Documented by: Admin: 03/13/19 12:05 Dose: 10 mg Documented by: Admin: 03/13/19 05:38 Dose: 10 mg Documented by: Admin: 03/13/19 00:21 Dose: 10 mg Documented by: Admin: 03/12/19 17:50 Dose: 10 mg Documented by: Admin: 03/12/19 11:46 Dose: 10 mg Documented by: Admin: 03/12/19 05:03 Dose: 10 mg Documented by: Admin: 03/11/19 23:25 Dose: 10 mg Documented by: Admin: 03/11/19 17:42 Dose: 10 mg Documented by: BRINDA Sodium Chloride (Saline Flush) 10 ml IV Q8 [facility] Last Admin: 03/15/19 04:45 Dose: Not Given Documented by: Admin: 03/14/19 21:16 Dose: Not Given Documented by: Admin: 03/14/19 16:03 Dose: Not Given Documented by: Admin: 03/14/19 06:06 Dose: Not Given Documented by: Admin: 03/13/19 20:07 Dose: Not Given Documented by: Admin: 03/13/19 14:41 Dose: 10 ml Documented by: Admin: 03/13/19 06:38 Dose: 10 ml Documented by: Admin: 03/12/19 21:15 Dose: Not Given Documented by: Admin: 03/12/19 14:00 Dose: Not Given Documented by: Admin: 03/12/19 06:01 Dose: Not Given Documented by: Admin: 03/11/19 20:55 Dose: Not Given Documented by: Admin: 03/11/19 13:13 Dose: Not Given Documented by: BRINDA Tamsulosin HCl (Flomax) 0.4 mg PO HS [facility] Last Admin: 03/14/19 20:30 Dose: 0.4 mg Documented by: Admin: 03/13/19 19:48 Dose: 0.4 mg Documented by: Admin: 03/12/19 21:10 Dose: 0.4 mg Documented by: PAIGE Terazosin HCl (Hytrin) 5 mg PO DAILY [facility] Last Admin: 03/15/19 08:33 Dose: 5 mg Documented by: Admin: 03/14/19 15:59 Dose: Not Given Documented by: Admin: 03/14/19 04:56 Dose: 5 mg Documented by: Admin: 03/13/19 08:22 Dose: 5 mg Documented by: [email or web address] Shift Summary 03/15/19 02:45 Shift Summary by Camilo Villaseñor Pt rested during the night. Pt up in chair at shift change, denying pain or concern. Pt transferred to bed and placed personal CPAP device independently. Pt has denied pain or discomfort. Pt reports passing stool and flatus during the shift. Pt cont without IV access and MD is aware. Plan for Pt to DC to home today. Initialized on 03/15/19 02:45 - END OF NOTE
--- NOTE | 2019-03-18 12:19 | Operative Note ---
DATE OF OPERATION: 03/11/2019 PREOPERATIVE DIAGNOSIS: Terminal ileal stricture. 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 PROCEDURE: Cecal and terminal ileal resection. SURGEON: Collin Florence M.D. FINDINGS: Hard mass of the ileocecal valve, a thickened stenotic terminal ileum, thickened distal ileocecal mesentery. DESCRIPTION OF PROCEDURE: Under general anesthesia, the patient's abdomen was prepped and draped in a sterile field. A time-out procedure was carried out as per protocol. A midline incision was made. Palpation of the cecum revealed a very hard mass involving the ileocecal valve at the junction of the terminal ileum and the cecum. The hard mass clinically projected into the cecum. The distal 7 to 8 inches of terminal ileum was thickened with classic creeping fat along the york. There was an abrupt transition between thickened bowel and normal bowel. The mesentery was very thick, but I did not feel any hard nodes or nodules in the mesentery. Most of the thickened mesentery was associated with the terminal ileum. It was elected to do a generous cecal resection and resect the terminal ileum. At the junction of the normal and thickened bowel, a rent was made in the mesentery with electrocautery. The terminal ileum was divided using Contour stapler. The cecum was totally mobilized along with the appendix. The bowel was dissected up to about mid ascending colon. A rent was made in the mesocolon and the bowel was divided using a Contour stapler. The mesentery was divided using a LigaSure and Sara clamps. The specimen was passed off. The vessels of the mesentery were tied with 2-0 silk. A [id number] anastomosis was performed using a RACHNA 55 stapler and a TA 60 stapler. The staple lines were reinforced using a running locking 2-0 Prolene. The mesenteric defect was closed with running 2-0 Monocryl. Irrigation was carried out. I then broke scrub and sponge and instrument counts were carried out. I then rescrubbed with a new setup. Further irrigation was carried out. Inspection of the upper abdomen did not reveal any other pathology. Sponge, needle, instrument and blade counts were verified as correct. Fascia was closed with running #1 Prolene. Subcutaneous tissue was closed with 2-0 Monocryl. Skin was closed with aniket. Tegaderm dressing was placed. The patient tolerated the procedure well. He was awakened, transferred to a bed and taken to the postanesthetic care unit in stable, satisfactory condition. LCS:gisella Job ID: [id number] Doc ID: [id number] Collin Florence M.D.
--- NOTE | 2019-03-18 13:00 | Surgical Pathology Report ---
HISTOLOGY SPECIMEN MICROSCOPIC DIAGNOSIS ADDENDUM - MARCH 18, 2019 - FOR ADDITIONAL INFORMATION. DIAGNOSIS UNCHANGED. COLON, CECUM AND TERMINAL ILEUM, RESECTION: -- INVASIVE MODERATELY DIFFERENTIATED ADENOCARCINOMA, ARISING IN ADENOMATOUS CHANGE, WITH THE FOLLOWING FEATURES: - DEPTH OF INVASION: INVASIVE THROUGH MUSCULARIS PROPRIA TO PERICOLORECTAL ADIPOSE. - SIZE: 2 cm. - FOCAL TUMOR DEPOSIT IDENTIFIED. - LYMPH-VASCULAR INVASION NOT IDENTIFIED. - MARGINS FREE OF CARCINOMA. - THIRTEEN LYMPH NODES FREE OF METASTATIC CARCINOMA (0/13). - PATHOLOGIC STAGE: pT3 N0. -- TERMINAL ILEUM WITH FOCAL VILLOUS BLUNTING AND MILD ARCHITECTURAL DISTORTION; NO ACTIVE INFLAMMATION, GRANULOMATA, DYSPLASIA OR MALIGNANCY IDENTIFIED. -- APPENDIX WITH NO DIAGNOSTIC ALTERATION. (EBD:adj) SUMMARY CANCER DATA Procedure: Ileocecectomy. Tumor Site: Cecum. Tumor Size: 2 cm. Macroscopic Tumor Perforation: Not identified. Histologic Type: Adenocarcinoma. Histologic Grade: Moderately differentiated. Microscopic Tumor Extension: Invasive to pericolorectal adipose. Lymph-Vascular Invasion: Not identified. Perineural Invasion: Not identified. Tumor Deposits (discontinuous extramural extension): Focal. Treatment Effect: Not applicable. Margins: Proximal Margin: Free of carcinoma. Distal Margin: Free of carcinoma. Circumferential (Radial) or Mesenteric Margin: Free of carcinoma. Distance of invasive carcinoma from closest margin: 0.7 cm to radial margin. Lymph nodes: Number of Lymph Nodes examined: 13. Number of Lymph Nodes involved: 0. Pathologic Stage: pT3 N0. PROCEDURAL IMPRESSION Partial obstruction of small intestine, chronic Crohn's disease. GROSS DESCRIPTION Received in formalin labeled cecum and terminal ileum, is a segment of small bowel consisting of cecum and terminal ileum. The terminal ileum margin is stapled. This is inked black. The terminal ileum is 24.1 cm in length by 2.3 cm diameter. The serosa is pink-sanchez with sanchez attached fat. The wall is 0.3 cm thick. The mucosa is broadened or effaced at the ileocecal valve. There is an area of stricture and a 2 x 2 cm nodular raised area. The cecum is 7 cm in length by up to 6 cm in diameter. The appendix is present. It is 6 cm in length by up to 0.6 cm in diameter. The serosa is tillman-sanchez. The wall is up to 0.2 cm thick. The mucosa is sanchez and plicated. There is a 3 cm stapled margin. The are possible nodules along the surface that are 0.2 and 0.3 cm. Telescope Operator sections are submitted in ten cassettes: A1 - margins; A2-A3 - random sections of terminal ileum; A4-A7 - automotive sales representative sections of raised nodular area at ileocecal valve with A4 and A5 being full cross section halved and A6-A7 - full cross section halved; A8 - random sections of cecum; A9 - automotive sales representative sections of appendix; A10 - candidate lymph nodes; A11 - five candidate nodes, the largest bisected and inked black; A12-A20 - pericolorectal adipose for possible lymph nodes; A21-A22 - additional automotive sales representative sections of lesion; A23-A42 - fat around area of tumor. (SCB:adj) Electronically Signed by: Nella Montenegro M.D.
== END 2019-03-15 15:30 | disposition home or self-care (01) | DRG 330 ==
LOC: MEDSUR 04:55
PROVIDERS: ADMIT Family Medicine Adult Medicine; ATTEND Family Medicine Adult Medicine